=== PATIENT | male | born 1990 | race Caucasian/White ===

== ENCOUNTER 2017-05-24 15:20 | Inpatient (IN) | payer MEDICARE, MEDICAID ==
[~2017-05-24] VITALS: Ht 165.1 cm; Wt 66.7 kg
[~2017-05-24 15:20] MED LIST: FLUO-191 PO; QUET200T PO
[2017-05-24 17:39] VITALS: BP 115/71
[2017-05-24] MEDS ORDERED: HALOPERIDOL 5 MG TABLET PO PRN (17:45)
[2017-05-24 18:50] VITALS: BP 120/74
[2017-05-24] MEDS: LORazepam 2 MG TABLET PO PRN (19:29)
[2017-05-24] MEDS ORDERED: BENZ1TAB10 PO (20:03)
[2017-05-24] MEDS ORDERED: TRAZ-144 PO (20:03)
[2017-05-24] MEDS ORDERED: CLOT15CR5 TP (20:03)
[2017-05-24] MEDS ORDERED: DOCU250C90 PO (20:03)
[2017-05-24] MEDS ORDERED: FLUO-191 PO (20:03)
[2017-05-25] MEDS ORDERED: INFLUENZA VIRUS VACCINE QVS 2017-18 (3YR+)/PF 60 MCG/0.5 ML SYRINGE IM ONE (00:45)
[2017-05-25 06:40] VITALS: BP 106/53
[2017-05-25] MEDS ORDERED: MAG HYDROX/AL HYDROX/SIMETH ES 30 ML SUSPENSION UDCUP PO PRN (07:30)
[2017-05-25] MEDS ORDERED: CloNIDine HCL 0.1 MG TABLET PO PRN (07:30)
[2017-05-25] MEDS ORDERED: IBUPROFEN 600 MG TABLET PO PRN (07:30)
[2017-05-25] MEDS ORDERED: BACITRACIN 28.4 GM OINTMENT TP PRN (07:30)
[2017-05-25] MEDS ORDERED: BENZOCAINE/MENTHOL LOZENGE MM PRN (07:30)
[2017-05-25] MEDS ORDERED: MAGNESIUM HYDROXIDE SUSPENSION 30 ML UDCUP PO PRN (07:30)
[2017-05-25] MEDS ORDERED: PETROLATUM,WHITE 71 GM JELLY TP PRN (07:30)
[2017-05-25] MEDS ORDERED: ONDANSETRON HCL 4 MG TABLET PO PRN (07:30)
[2017-05-25] MEDS ORDERED: ACETAMINOPHEN 325 MG TABLET PO PRN (07:30)
[2017-05-25] MEDS ORDERED: ALBUTEROL SULFATE HFA 90 MCG/PUFF 8 GM INHALER IH PRN (07:30)
[2017-05-25] MEDS ORDERED: LOPERAMIDE HCL 2 MG CAPSULE PO PRN (07:30)
[2017-05-25 08:00] LABS: BASOPHILS # (AUTO) 0.02 K/uL (0.00-0.20); BASOPHILS % (AUTO) 0.2 % (0.0-2.0); EOSINOPHILS # (AUTO) 0.19 K/uL (0.00-0.70); EOSINOPHILS % (AUTO) 2.66 % (1.0-6.0); HEMATOCRIT 48.1 % (41-53); HEMOGLOBIN 15.9 g/dL (13.5-17.5); LYMPHOCYTES # (AUTO) 2.2 K/uL (1.0-4.8); LYMPHOCYTES % (AUTO) 30.6 % (22.0-44.0); MEAN CORPUSCULAR HEMOGLOBIN 29.9 pg (26.0-34.0); MEAN CORPUSCULAR HGB CONC 33.1 G/dL (31.0-37.0); MEAN CORPUSCULAR VOLUME 90 fL (80-100); MONOCYTES # (AUTO) 0.6 K/uL (0.1-1.0); MONOCYTES % (AUTO) 7.8 % (2.0-9.0); NEUTROPHILS # (AUTO) 4.2 K/uL (1.8-7.7); NEUTROPHILS % (AUTO) 58.7 % (40.0-70.0); PLATELET COUNT (AUTO) 205 K/uL (150-450); RED BLOOD CELL COUNT(AUTO) 5.34 MIL/uL (4.50-5.90); RED CELL DISTRIBUTION WIDTH 13.7 % (11.5-14.5); WHITE BLOOD COUNT (AUTO) 7.2 K/uL (4.5-11.0)
[2017-05-25 08:07] VITALS: BP 119/69
[2017-05-25 08:41] LABS: ALANINE AMINOTRANSFERASE 24 U/L (12-78); ALBUMIN 3.9 g/dL (3.4-5.0); ANION GAP 5 mmol/L (8-16); ASPARTATE AMINOTRANSFERASE 21 U/L (15-37); BILIRUBIN,TOTAL 0.4 mg/dL (0.1-1.0); CALCIUM, TOTAL 8.7 mg/dL (8.8-10.5); CARBON DIOXIDE 32 mmol/L (22-29); CHLORIDE 103 mmol/L (98-107); CREATININE 0.93 mg/dL (0.60-1.30); GLOMERULAR FILTR. RATE CALC > 60 mL/min (>60); POTASSIUM 4.2 mmol/L (3.5-5.1); SODIUM SERUM 140 mmol/L (136-145); THYROID STIMULATING HORMONE 0.64 uIU/mL (0.36-3.74); TOTAL PROTEIN, SERUM 7.3 g/dL (6.4-8.2); UREA NITROGEN, BLOOD 19 mg/dL (7-18)
[2017-05-25 16:17] VITALS: BP 124/77
[2017-05-25] MEDS: QUEtiapine FUMARATE 200 MG TABLET PO SCH (20:38)
[2017-05-26 00:06] VITALS: BP 108/65
[2017-05-26] MEDS: FLUoxetine HCL 20 MG CAPSULE PO SCH (08:22)
[2017-05-26 08:30] VITALS: BP 130/76
[2017-05-26 16:18] VITALS: BP 121/61
[2017-05-26] MEDS: QUEtiapine FUMARATE 200 MG TABLET PO SCH (20:12)
[2017-05-27 07:19] VITALS: BP 125/75
[2017-05-27] MEDS: FLUoxetine HCL 20 MG CAPSULE PO SCH (08:53)
[2017-05-27 08:57] VITALS: BP 118/63
[2017-05-27 16:04] VITALS: BP 125/67
[2017-05-27] MEDS: QUEtiapine FUMARATE 200 MG TABLET PO SCH (20:15)
[2017-05-28 00:30] VITALS: BP 101/60
[2017-05-28 08:51] VITALS: BP 119/60
[2017-05-28] MEDS: FLUoxetine HCL 20 MG CAPSULE PO SCH (09:14)
[2017-05-28 16:22] VITALS: BP 116/56
[2017-05-28] MEDS: QUEtiapine FUMARATE 200 MG TABLET PO SCH (20:22)
[2017-05-29 06:43] VITALS: BP 116/64
[2017-05-29 08:36] VITALS: BP 113/60
[2017-05-29] MEDS: FLUoxetine HCL 20 MG CAPSULE PO SCH (09:43)
[2017-05-29 16:11] VITALS: BP 125/67
[2017-05-29] MEDS: QUEtiapine FUMARATE 200 MG TABLET PO SCH (20:46)
[2017-05-30 01:46] VITALS: BP 118/68
[2017-05-30 08:07] VITALS: BP 119/65
[2017-05-30] MEDS: FLUoxetine HCL 20 MG CAPSULE PO SCH (08:41)
[2017-05-30 16:43] VITALS: BP 119/60
[2017-05-30] MEDS: QUEtiapine FUMARATE 200 MG TABLET PO SCH (20:05)
[2017-05-31 00:09] VITALS: BP 112/68
[2017-05-31] MEDS: FLUoxetine HCL 20 MG CAPSULE PO SCH (08:17)
[2017-05-31 08:35] VITALS: BP 118/67
[2017-05-31 16:26] VITALS: BP 124/63
[2017-05-31] MEDS: QUEtiapine FUMARATE 200 MG TABLET PO SCH (20:37)
[2017-05-31] MEDS: ZOLPIDEM TARTRATE 10 MG TABLET PO PRN (22:37)
[2017-06-01 01:30] VITALS: BP 118/60
[2017-06-01 08:21] VITALS: BP 133/96
[2017-06-01] MEDS: FLUoxetine HCL 20 MG CAPSULE PO SCH (08:48)
[2017-06-01 10:00] VITALS: BP 121/73
[2017-06-01 16:11] VITALS: BP 114/77
[2017-06-01] MEDS: QUEtiapine FUMARATE 200 MG TABLET PO SCH (20:39)
[2017-06-02 07:02] VITALS: BP 122/73
[2017-06-02] MEDS: FLUoxetine HCL 20 MG CAPSULE PO SCH (08:39)
[2017-06-02 08:47] VITALS: BP 118/78
[2017-06-02 16:15] VITALS: BP 116/65
[2017-06-02] MEDS: QUEtiapine FUMARATE 200 MG TABLET PO SCH (20:42)
[2017-06-03 01:36] VITALS: BP 109/60
[2017-06-03 08:27] VITALS: BP 119/63
[2017-06-03] MEDS: FLUoxetine HCL 20 MG CAPSULE PO SCH (08:44)
[2017-06-03 16:10] VITALS: BP 127/68
[2017-06-03] MEDS: QUEtiapine FUMARATE 200 MG TABLET PO SCH (20:05)
[2017-06-04 06:31] VITALS: BP 106/63
[2017-06-04 08:05] VITALS: BP 116/62
[2017-06-04] MEDS: FLUoxetine HCL 20 MG CAPSULE PO SCH (08:47)
[2017-06-04 16:10] VITALS: BP 111/71
[2017-06-04] MEDS: QUEtiapine FUMARATE 200 MG TABLET PO SCH (20:18)
[2017-06-05 06:11] VITALS: BP 102/62
[2017-06-05 08:26] VITALS: BP 108/72
[2017-06-05] MEDS: FLUoxetine HCL 20 MG CAPSULE PO SCH (08:53)
[2017-06-05 16:05] VITALS: BP 121/60
[2017-06-05] MEDS: QUEtiapine FUMARATE 200 MG TABLET PO SCH (21:04)
[2017-06-06 06:39] VITALS: BP 106/65
[2017-06-06 08:12] VITALS: BP 126/77
[2017-06-06] MEDS: FLUoxetine HCL 20 MG CAPSULE PO SCH (08:41)
[2017-06-06 16:08] VITALS: BP 131/63
[2017-06-06] MEDS: QUEtiapine FUMARATE 200 MG TABLET PO SCH (20:18)
[2017-06-07 05:57] VITALS: BP 113/60
[2017-06-07 08:06] VITALS: BP 116/60
[2017-06-07] MEDS: FLUoxetine HCL 20 MG CAPSULE PO SCH (08:47)
[2017-06-07 17:08] VITALS: BP 124/69
[2017-06-07] MEDS: QUEtiapine FUMARATE 200 MG TABLET PO SCH (20:38)
[2017-06-08 03:16] VITALS: BP 112/61
[2017-06-08 08:10] VITALS: BP 108/64
[2017-06-08] MEDS: FLUoxetine HCL 20 MG CAPSULE PO SCH (08:49)
[2017-06-08 16:14] VITALS: BP 109/71
[2017-06-08] MEDS: QUEtiapine FUMARATE 200 MG TABLET PO SCH (20:36)
[2017-06-09 03:42] VITALS: BP 108/62
[2017-06-09 08:39] VITALS: BP 105/61
[2017-06-09] MEDS: FLUoxetine HCL 20 MG CAPSULE PO SCH (08:55)
[2017-06-09 16:20] VITALS: BP 132/84
[2017-06-09] MEDS: QUEtiapine FUMARATE 200 MG TABLET PO SCH (20:10)
[2017-06-10 00:09] VITALS: BP 106/64
[2017-06-10] MEDS: FLUoxetine HCL 20 MG CAPSULE PO SCH (08:34)
[2017-06-10 09:17] VITALS: BP 122/65
[2017-06-10 16:19] VITALS: BP 118/71
[2017-06-10] MEDS: QUEtiapine FUMARATE 200 MG TABLET PO SCH (20:47)
[2017-06-11 06:17] VITALS: BP 103/68
[2017-06-11 08:44] VITALS: BP 114/75
[2017-06-11] MEDS: FLUoxetine HCL 20 MG CAPSULE PO SCH (08:57)
[2017-06-11 16:07] VITALS: BP 123/71
[2017-06-11] MEDS: QUEtiapine FUMARATE 200 MG TABLET PO SCH (20:19)
[2017-06-12 01:31] VITALS: BP 121/71
[2017-06-12 08:39] VITALS: BP 120/66
[2017-06-12] MEDS: FLUoxetine HCL 20 MG CAPSULE PO SCH (08:46)
[2017-06-12 16:23] VITALS: BP 121/60
[2017-06-12] MEDS: QUEtiapine FUMARATE 200 MG TABLET PO SCH (20:37)
[2017-06-13 01:17] VITALS: BP 125/61
[2017-06-13 08:40] VITALS: BP 119/64
[2017-06-13] MEDS: FLUoxetine HCL 20 MG CAPSULE PO SCH (09:06)
[2017-06-13 16:10] VITALS: BP 116/68
[2017-06-13] MEDS: QUEtiapine FUMARATE 200 MG TABLET PO SCH (20:38)
[2017-06-14 06:28] VITALS: BP 112/65
[2017-06-14 08:24] VITALS: BP 119/62
[2017-06-14] MEDS: FLUoxetine HCL 20 MG CAPSULE PO SCH (08:35)
[2017-06-14 16:13] VITALS: BP 119/73
[2017-06-14] MEDS: QUEtiapine FUMARATE 200 MG TABLET PO SCH (20:36)
[2017-06-15 01:00] VITALS: BP 113/79
[2017-06-15 08:25] LABS: HEMATOCRIT 48.1 % (41-53); HEMOGLOBIN 15.2 g/dL (13.5-17.5); MEAN CORPUSCULAR HEMOGLOBIN 28.5 pg (26.0-34.0); MEAN CORPUSCULAR HGB CONC 31.7 G/dL (31.0-37.0); MEAN CORPUSCULAR VOLUME 90 fL (80-100); PLATELET COUNT (AUTO) 235 K/uL (150-450); RED BLOOD CELL COUNT(AUTO) 5.35 MIL/uL (4.50-5.90); WHITE BLOOD COUNT (AUTO) 7.3 K/uL (4.5-11.0)
[2017-06-15 08:42] LABS: ANION GAP 9 mmol/L (8-16); CALCIUM, TOTAL 8.9 mg/dL (8.8-10.5); CARBON DIOXIDE 32 mmol/L (22-29); CHLORIDE 103 mmol/L (98-107); CREATININE 0.92 mg/dL (0.60-1.30); GLOMERULAR FILTR. RATE CALC > 60 mL/min (>60); PHOSPHORUS 4.2 mg/dL (2.5-4.9); POTASSIUM 4.3 mmol/L (3.5-5.1); SODIUM SERUM 144 mmol/L (136-145); UREA NITROGEN, BLOOD 13 mg/dL (7-18)
[2017-06-15] MEDS: FLUoxetine HCL 20 MG CAPSULE PO SCH (08:49)
[2017-06-15 09:46] VITALS: BP 105/65
[2017-06-15 09:58] LABS: EOSINOPHILS % (MANUAL) 1 % (1-6); LYMPHOCYTES % (MANUAL) 28 % (22-44); TOTAL CELLS COUNTED 100
[2017-06-15 09:59] LABS: RBC MORPHOLOGY COMMENT NORMAL RBC MORPH
[2017-06-15 16:10] VITALS: BP 124/66
[2017-06-15] MEDS: QUEtiapine FUMARATE 200 MG TABLET PO SCH (20:42)
[2017-06-16 00:50] VITALS: BP 105/63
[2017-06-16 08:32] VITALS: BP 126/70
[2017-06-16] MEDS: FLUoxetine HCL 20 MG CAPSULE PO SCH (08:48)
[2017-06-16 16:12] VITALS: BP 139/71
[2017-06-16] MEDS: LORazepam 2 MG TABLET PO PRN (20:16)
[2017-06-16] MEDS: QUEtiapine FUMARATE 200 MG TABLET PO SCH (20:27)
[2017-06-17 00:10] VITALS: BP 111/71
[2017-06-17] MEDS: FLUoxetine HCL 20 MG CAPSULE PO SCH (08:17)
[2017-06-17 08:21] VITALS: BP 129/66
[2017-06-17 16:09] VITALS: BP 128/78
[2017-06-17] MEDS: LORazepam 2 MG TABLET PO PRN (17:06)
[2017-06-17] MEDS: QUEtiapine FUMARATE 200 MG TABLET PO SCH (20:31)
[2017-06-18 02:17] VITALS: BP 112/79
[2017-06-18] MEDS: FLUoxetine HCL 20 MG CAPSULE PO SCH (08:03)
[2017-06-18 08:28] VITALS: BP 143/65
[2017-06-18 16:15] VITALS: BP 124/74
[2017-06-18] MEDS: QUEtiapine FUMARATE 200 MG TABLET PO SCH (20:27)
[2017-06-19 02:12] VITALS: BP 111/61
[2017-06-19] MEDS: FLUoxetine HCL 20 MG CAPSULE PO SCH (08:05)
[2017-06-19 08:51] VITALS: BP 122/73
[2017-06-19] MEDS ORDERED: DiphenhydrAMINE HCL 50 MG/ML VIAL ONE (12:33)
[2017-06-19] MEDS ORDERED: LORazepam 2 MG/ML VIAL ONE (12:33)
[2017-06-19] MEDS ORDERED: HALOPERIDOL LACTATE 5 MG/ML VIAL ONE (12:34)
[2017-06-19] MEDS ORDERED: DiphenhydrAMINE HCL 50 MG/ML VIAL IM ONE (12:45)
[2017-06-19] MEDS ORDERED: HALOPERIDOL LACTATE 5 MG/ML VIAL IM ONE ×2 (12:45→13:00)
[2017-06-19] MEDS ORDERED: LORazepam 2 MG/ML VIAL IM ONE (12:45)
[2017-06-19 13:12] VITALS: BP 138/81
[2017-06-19 16:15] VITALS: BP 140/76
[2017-06-19] MEDS: QUEtiapine FUMARATE 200 MG TABLET PO SCH (20:35)
[2017-06-20 00:30] VITALS: BP 125/60
[2017-06-20] MEDS: ZOLPIDEM TARTRATE 10 MG TABLET PO PRN (00:31)
[2017-06-20 08:21] VITALS: BP 137/84
[2017-06-20] MEDS: FLUoxetine HCL 20 MG CAPSULE PO SCH (08:22)
[2017-06-20 16:10] VITALS: BP 117/63
[2017-06-20] MEDS ORDERED: BENZOCAINE 20% 11.9 GM GEL TP PRN (18:15)
[2017-06-20] MEDS: QUEtiapine FUMARATE 200 MG TABLET PO SCH (20:32)
[2017-06-21 06:17] VITALS: BP 139/76
[2017-06-21 08:16] VITALS: BP 129/78
[2017-06-21] MEDS: FLUoxetine HCL 20 MG CAPSULE PO SCH (08:25)
[2017-06-21] MEDS ORDERED: QUET400T PO (09:37)
[2017-06-21] MEDS ORDERED: ALBU4TAB4 PO (09:39)
== END 2017-06-21 13:00 | disposition home or self-care (01) | DRG 881 ==
LOC: B2X 17:51
PROVIDERS: ADMIT Psychiatry & Neurology Psychiatry; ATTEND Psychiatry & Neurology Psychiatry
DX: F32.9 Major depressive disorder, single episode, unspecified (principal); F79 Unspecified intellectual disabilities; R45.851 Suicidal ideations; F22 Delusional disorders; F25.1 Schizoaffective disorder, depressive type; F12.90 Cannabis use, unspecified, uncomplicated; R62.50 Unspecified lack of expected normal physiological development in childhood; Z72.0 Tobacco use; Z71.6 Tobacco abuse counseling; Z71.51 Drug abuse counseling and surveillance of drug abuser; Z28.21 Immunization not carried out because of patient refusal
CPT/HCPCS: 83735; 84100; 84439; 84443; 85007; 87081; J1200; J1630; J2060

== ENCOUNTER 2017-06-21 19:56 | Inpatient (IN) | payer MEDICARE, MEDICAID ==
[~2017-06-21] VITALS: Ht 165.1 cm; Wt 78.5 kg
[~2017-06-21 19:56] MED LIST changes: +ALBU4TAB4 PO; -QUET200T PO; +QUET400T PO
[2017-06-22] MEDS ORDERED: ZOLPIDEM TARTRATE 10 MG TABLET PO PRN (00:15)
[2017-06-22 00:21] VITALS: BP 136/82
[2017-06-22] MEDS ORDERED: INFLUENZA VIRUS VACCINE QVS 2017-18 (3YR+)/PF 60 MCG/0.5 ML SYRINGE IM ONE (00:45)
[2017-06-22 01:27] VITALS: BP 138/75
[2017-06-22 07:57] LABS: BASOPHILS % (AUTO) 0.2 % (0.0-2.0); EOSINOPHILS % (AUTO) 0.2 % (1.0-6.0); HEMATOCRIT 46.4 % (41-53); LYMPHOCYTES # (AUTO) 1.6 K/uL (1.0-4.8); LYMPHOCYTES % (AUTO) 15.2 % (22.0-44.0); MEAN CORPUSCULAR HEMOGLOBIN 30.4 pg (26.0-34.0); MEAN CORPUSCULAR HGB CONC 34.4 G/dL (31.0-37.0); MEAN CORPUSCULAR VOLUME 88 fL (80-100); MONOCYTES # (AUTO) 0.9 K/uL (0.1-1.0); MONOCYTES % (AUTO) 8.9 % (2.0-9.0); NEUTROPHILS % (AUTO) 75.5 % (40.0-70.0); PLATELET COUNT (AUTO) 260 K/uL (150-450); RED BLOOD CELL COUNT(AUTO) 5.26 MIL/uL (4.50-5.90); RED CELL DISTRIBUTION WIDTH 14.1 % (11.5-14.5)
[2017-06-22] MEDS ORDERED: PETROLATUM,WHITE 71 GM JELLY TP PRN (08:15)
[2017-06-22] MEDS ORDERED: CloNIDine HCL 0.1 MG TABLET PO PRN (08:15)
[2017-06-22] MEDS ORDERED: MAG HYDROX/AL HYDROX/SIMETH ES 30 ML SUSPENSION UDCUP PO PRN (08:15)
[2017-06-22] MEDS ORDERED: BENZOCAINE/MENTHOL LOZENGE MM PRN (08:15)
[2017-06-22] MEDS ORDERED: ACETAMINOPHEN 325 MG TABLET PO PRN (08:15)
[2017-06-22] MEDS ORDERED: MAGNESIUM HYDROXIDE SUSPENSION 30 ML UDCUP PO PRN (08:15)
[2017-06-22] MEDS ORDERED: LOPERAMIDE HCL 2 MG CAPSULE PO PRN (08:15)
[2017-06-22] MEDS ORDERED: IBUPROFEN 600 MG TABLET PO PRN (08:15)
[2017-06-22] MEDS ORDERED: BACITRACIN 28.4 GM OINTMENT TP PRN (08:15)
[2017-06-22] MEDS ORDERED: ONDANSETRON HCL 4 MG TABLET PO PRN (08:15)
[2017-06-22] MEDS ORDERED: ALBUTEROL SULFATE HFA 90 MCG/PUFF 8 GM INHALER IH PRN (08:15)
[2017-06-22 08:23] LABS: ALANINE AMINOTRANSFERASE 37 U/L (12-78); ALBUMIN 4.6 g/dL (3.4-5.0); ALKALINE PHOSPHATASE 95 U/L (46-116); ANION GAP 10 mmol/L (8-16); ASPARTATE AMINOTRANSFERASE 27 U/L (15-37); BILIRUBIN,TOTAL 0.4 mg/dL (0.1-1.0); CALCIUM, TOTAL 9.3 mg/dL (8.8-10.5); CARBON DIOXIDE 29 mmol/L (22-29); CHLORIDE 103 mmol/L (98-107); CHOLESTEROL 154 mg/dL (131-200); CREATININE 0.94 mg/dL (0.60-1.30); FREE T4 (FREE THYROXINE) 0.88 ng/dL (0.76-1.46); GLOMERULAR FILTR. RATE CALC > 60 mL/min (>60); GLUCOSE,RANDOM 125 mg/dL (70-110); POTASSIUM 3.4 mmol/L (3.5-5.1); SODIUM SERUM 142 mmol/L (136-145); TOTAL PROTEIN, SERUM 8.3 g/dL (6.4-8.2); TRIGLYCERIDES 35 mg/dL (15-150); UREA NITROGEN, BLOOD 16 mg/dL (7-18)
[2017-06-22 08:35] LABS: CHOL/HDL RATIO 3.1 (4.2-7.3); HDL CHOLESTEROL 49 mg/dL (40-60); LDL CHOL (CALC.) 98 mg/dL (0-130)
[2017-06-22 08:40] VITALS: BP 148/77
[2017-06-22] MEDS: FLUoxetine HCL 20 MG CAPSULE PO SCH (09:32)
[2017-06-22] MEDS: LORazepam 2 MG TABLET PO PRN (14:15)
[2017-06-22] MEDS ORDERED: BENZOCAINE 20% 11.9 GM GEL TP PRN (16:00)
[2017-06-22] MEDS ORDERED: BENZOCAINE 10% 7 GM GEL TP PRN (16:30)
[2017-06-22 16:31] VITALS: BP 116/71
[2017-06-22] MEDS: QUEtiapine FUMARATE 200 MG TABLET PO SCH (20:44)
[2017-06-23 06:36] VITALS: BP 120/65
[2017-06-23 08:00] VITALS: BP 131/68
[2017-06-23 08:26] LABS: POTASSIUM 4.3 mmol/L (3.5-5.1)
[2017-06-23] MEDS: FLUoxetine HCL 20 MG CAPSULE PO SCH (08:35)
[2017-06-23] MEDS: NYSTATIN 15 GM POWDER BOTTLE TP SCH ×2 (08:36→16:43)
[2017-06-23 16:06] VITALS: BP 113/63
[2017-06-23] MEDS: QUEtiapine FUMARATE 200 MG TABLET PO SCH (20:46)
[2017-06-24 05:15] VITALS: BP 120/84
[2017-06-24] MEDS: LORazepam 2 MG TABLET PO PRN (05:16)
[2017-06-24 08:39] VITALS: BP 143/78
[2017-06-24] MEDS: NYSTATIN 15 GM POWDER BOTTLE TP SCH ×2 (09:04→17:06)
[2017-06-24] MEDS: FLUoxetine HCL 20 MG CAPSULE PO SCH (09:04)
[2017-06-24 16:40] VITALS: BP 125/90
[2017-06-24] MEDS: QUEtiapine FUMARATE 200 MG TABLET PO SCH (20:22)
[2017-06-25 01:31] VITALS: BP 127/70
[2017-06-25] MEDS: NYSTATIN 15 GM POWDER BOTTLE TP SCH ×2 (08:31→17:07)
[2017-06-25] MEDS: FLUoxetine HCL 20 MG CAPSULE PO SCH (08:31)
[2017-06-25 08:33] VITALS: BP 131/69
[2017-06-25 16:08] VITALS: BP 127/75
[2017-06-25] MEDS: QUEtiapine FUMARATE 200 MG TABLET PO SCH (20:28)
[2017-06-26 03:57] VITALS: BP 125/70
[2017-06-26] MEDS: FLUoxetine HCL 20 MG CAPSULE PO SCH (08:10)
[2017-06-26] MEDS: NYSTATIN 15 GM POWDER BOTTLE TP SCH ×2 (08:10→17:03)
[2017-06-26 08:25] VITALS: BP 127/80
[2017-06-26 16:07] VITALS: BP 120/77
[2017-06-26] MEDS: QUEtiapine FUMARATE 200 MG TABLET PO SCH (20:29)
[2017-06-27 06:02] VITALS: BP 110/60
[2017-06-27 08:27] VITALS: BP 130/63
[2017-06-27] MEDS: FLUoxetine HCL 20 MG CAPSULE PO SCH (08:28)
[2017-06-27] MEDS: NYSTATIN 15 GM POWDER BOTTLE TP SCH ×2 (08:29→16:50)
[2017-06-27 16:08] VITALS: BP 125/70
[2017-06-27] MEDS: QUEtiapine FUMARATE 200 MG TABLET PO SCH (20:47)
[2017-06-28 05:37] VITALS: BP 118/69
[2017-06-28 08:36] VITALS: BP 132/63
[2017-06-28] MEDS: FLUoxetine HCL 20 MG CAPSULE PO SCH (08:47)
[2017-06-28 16:05] VITALS: BP 121/73
[2017-06-28] MEDS: QUEtiapine FUMARATE 300 MG TABLET PO SCH (20:17)
[2017-06-29 06:46] VITALS: BP 117/62
[2017-06-29 08:35] VITALS: BP 120/61
[2017-06-29] MEDS: FLUoxetine HCL 20 MG CAPSULE PO SCH (08:48)
[2017-06-29 16:04] VITALS: BP 108/64
[2017-06-29] MEDS: QUEtiapine FUMARATE 300 MG TABLET PO SCH (20:37)
[2017-06-30 07:09] VITALS: BP 107/61
[2017-06-30 08:28] VITALS: BP 116/60
[2017-06-30] MEDS: FLUoxetine HCL 20 MG CAPSULE PO SCH (08:36)
[2017-06-30 16:18] VITALS: BP 129/75
[2017-06-30] MEDS: QUEtiapine FUMARATE 300 MG TABLET PO SCH (20:33)
[2017-07-01 06:30] VITALS: BP 113/65
[2017-07-01] MEDS: FLUoxetine HCL 20 MG CAPSULE PO SCH (08:05)
[2017-07-01 08:24] VITALS: BP 132/61
[2017-07-01 16:08] VITALS: BP 126/69
[2017-07-01] MEDS: QUEtiapine FUMARATE 300 MG TABLET PO SCH (20:31)
[2017-07-02 00:51] VITALS: BP 127/60
[2017-07-02 08:36] VITALS: BP 126/63
[2017-07-02] MEDS: FLUoxetine HCL 20 MG CAPSULE PO SCH (09:14)
[2017-07-02 16:15] VITALS: BP 139/71
[2017-07-02] MEDS: QUEtiapine FUMARATE 300 MG TABLET PO SCH (20:17)
[2017-07-03 02:16] VITALS: BP 128/73
[2017-07-03 08:41] VITALS: BP 134/77
[2017-07-03] MEDS: FLUoxetine HCL 20 MG CAPSULE PO SCH (09:04)
[2017-07-03 16:13] VITALS: BP 139/75
[2017-07-03] MEDS: QUEtiapine FUMARATE 300 MG TABLET PO SCH (20:42)
[2017-07-04 00:25] VITALS: BP 114/68
[2017-07-04 08:00] VITALS: BP 122/67
[2017-07-04] MEDS: FLUoxetine HCL 20 MG CAPSULE PO SCH (08:54)
[2017-07-04] MEDS ORDERED: TUBERCULIN, PURIFIED PROTEIN DERIVATIVE 5 TU/0.1 ML SYG ID ONE (15:30)
[2017-07-04 17:57] VITALS: BP 133/67
[2017-07-04] MEDS: QUEtiapine FUMARATE 300 MG TABLET PO SCH (20:33)
[2017-07-05 07:11] VITALS: BP 135/66
[2017-07-05 08:13] VITALS: BP 121/80
[2017-07-05] MEDS: FLUoxetine HCL 20 MG CAPSULE PO SCH (09:26)
[2017-07-05 16:08] VITALS: BP 131/64
[2017-07-05] MEDS: QUEtiapine FUMARATE 300 MG TABLET PO SCH (20:34)
[2017-07-06 01:37] VITALS: BP 135/71
[2017-07-06 08:45] VITALS: BP 127/66
[2017-07-06] MEDS: FLUoxetine HCL 20 MG CAPSULE PO SCH (09:01)
[2017-07-06 16:05] VITALS: BP 126/80
[2017-07-06] MEDS: QUEtiapine FUMARATE 300 MG TABLET PO SCH (20:39)
[2017-07-07 06:30] VITALS: BP 113/66
[2017-07-07] MEDS: FLUoxetine HCL 20 MG CAPSULE PO SCH (08:27)
[2017-07-07 08:51] VITALS: BP 130/61
[2017-07-07 16:06] VITALS: BP 131/70
[2017-07-07] MEDS: QUEtiapine FUMARATE 300 MG TABLET PO SCH (20:28)
[2017-07-08 06:31] VITALS: BP 123/61
[2017-07-08 08:37] VITALS: BP 118/73
[2017-07-08] MEDS: FLUoxetine HCL 20 MG CAPSULE PO SCH (09:02)
[2017-07-08 16:04] VITALS: BP 123/66
[2017-07-08] MEDS: QUEtiapine FUMARATE 300 MG TABLET PO SCH (20:35)
[2017-07-09 04:46] VITALS: BP 130/64
[2017-07-09] MEDS: FLUoxetine HCL 20 MG CAPSULE PO SCH (08:49)
[2017-07-09 09:01] VITALS: BP 119/88
[2017-07-09 16:12] VITALS: BP 118/77
[2017-07-09] MEDS: QUEtiapine FUMARATE 300 MG TABLET PO SCH (20:34)
[2017-07-10 02:17] VITALS: BP 110/64
[2017-07-10 08:27] VITALS: BP 132/71
[2017-07-10] MEDS: FLUoxetine HCL 20 MG CAPSULE PO SCH (08:46)
[2017-07-10 16:07] VITALS: BP 126/72
[2017-07-10] MEDS: QUEtiapine FUMARATE 300 MG TABLET PO SCH (20:30)
[2017-07-11 00:30] VITALS: BP 115/71
[2017-07-11 08:21] VITALS: BP 137/69
[2017-07-11] MEDS: FLUoxetine HCL 20 MG CAPSULE PO SCH (10:33)
[2017-07-11 16:06] VITALS: BP 126/75
[2017-07-11] MEDS: QUEtiapine FUMARATE 300 MG TABLET PO SCH (20:44)
[2017-07-12 05:00] VITALS: BP 115/60
[2017-07-12 08:30] VITALS: BP 119/60
[2017-07-12] MEDS: FLUoxetine HCL 20 MG CAPSULE PO SCH (08:53)
[2017-07-12 16:06] VITALS: BP 125/66
[2017-07-12] MEDS: QUEtiapine FUMARATE 300 MG TABLET PO SCH (20:47)
[2017-07-13 00:30] VITALS: BP 118/73
[2017-07-13 08:07] VITALS: BP 122/77
[2017-07-13] MEDS: FLUoxetine HCL 20 MG CAPSULE PO SCH (08:35)
[2017-07-13 16:38] VITALS: BP 118/69
[2017-07-13] MEDS: QUEtiapine FUMARATE 300 MG TABLET PO SCH (20:36)
[2017-07-14 06:30] VITALS: BP 133/81
[2017-07-14 08:07] VITALS: BP 112/69
[2017-07-14] MEDS: FLUoxetine HCL 20 MG CAPSULE PO SCH (08:24)
[2017-07-14 16:07] VITALS: BP 124/64
[2017-07-14] MEDS: QUEtiapine FUMARATE 300 MG TABLET PO SCH (20:38)
[2017-07-15 06:42] VITALS: BP 132/60
[2017-07-15 08:34] VITALS: BP 124/76
[2017-07-15] MEDS: FLUoxetine HCL 20 MG CAPSULE PO SCH (09:14)
[2017-07-15 16:18] VITALS: BP 135/61
[2017-07-15] MEDS: QUEtiapine FUMARATE 300 MG TABLET PO SCH (20:23)
[2017-07-16 02:26] VITALS: BP 120/60
[2017-07-16 08:42] VITALS: BP 127/64
[2017-07-16] MEDS: FLUoxetine HCL 20 MG CAPSULE PO SCH (09:00)
[2017-07-16 16:10] VITALS: BP 136/79
[2017-07-16] MEDS: QUEtiapine FUMARATE 300 MG TABLET PO SCH (20:07)
[2017-07-17 06:40] VITALS: BP 125/69
[2017-07-17] MEDS: FLUoxetine HCL 20 MG CAPSULE PO SCH (08:43)
[2017-07-17 08:47] VITALS: BP 129/72
[2017-07-17 16:19] VITALS: BP 130/71
[2017-07-17] MEDS: LORazepam 2 MG TABLET PO PRN (18:53)
[2017-07-17] MEDS: QUEtiapine FUMARATE 300 MG TABLET PO SCH (20:35)
[2017-07-18 01:18] VITALS: BP 116/63
[2017-07-18 08:00] VITALS: BP 135/67
[2017-07-18] MEDS: FLUoxetine HCL 20 MG CAPSULE PO SCH (08:51)
[2017-07-18 16:07] VITALS: BP_SYST 102; BP_SYST 117; BP_DIAS 60; BP_DIAS 77
[2017-07-18] MEDS: QUEtiapine FUMARATE 300 MG TABLET PO SCH (20:32)
[2017-07-19 04:34] VITALS: BP 121/68
[2017-07-19] MEDS: FLUoxetine HCL 20 MG CAPSULE PO SCH (08:13)
[2017-07-19 08:26] VITALS: BP 133/61
[2017-07-19 16:08] VITALS: BP 130/76
[2017-07-19] MEDS: LORazepam 2 MG TABLET PO PRN (17:43)
[2017-07-19] MEDS: QUEtiapine FUMARATE 300 MG TABLET PO SCH (20:35)
[2017-07-20 00:30] VITALS: BP 111/77
[2017-07-20 08:13] VITALS: BP 126/64
[2017-07-20] MEDS: FLUoxetine HCL 20 MG CAPSULE PO SCH (08:51)
[2017-07-20] MEDS: LORazepam 2 MG TABLET PO PRN (16:02)
[2017-07-20 16:07] VITALS: BP 134/84
[2017-07-20] MEDS: HALOPERIDOL 5 MG TABLET PO PRN (18:35)
[2017-07-20] MEDS: QUEtiapine FUMARATE 300 MG TABLET PO SCH (20:31)
[2017-07-21 01:01] VITALS: BP 129/80
[2017-07-21] MEDS: FLUoxetine HCL 20 MG CAPSULE PO SCH (08:38)
[2017-07-21 08:46] VITALS: BP 124/77
[2017-07-21 16:02] VITALS: BP 117/72
[2017-07-21] MEDS: QUEtiapine FUMARATE 300 MG TABLET PO SCH (20:18)
[2017-07-22 07:13] VITALS: BP 138/73
[2017-07-22 08:14] VITALS: BP 122/68
[2017-07-22] MEDS: FLUoxetine HCL 20 MG CAPSULE PO SCH (08:26)
[2017-07-22 09:07] LABS: HEMATOCRIT 48.2 % (41-53); HEMOGLOBIN 16.8 g/dL (13.5-17.5); MEAN CORPUSCULAR HEMOGLOBIN 30.7 pg (26.0-34.0); MEAN CORPUSCULAR HGB CONC 34.9 G/dL (31.0-37.0); MEAN CORPUSCULAR VOLUME 88 fL (80-100); PLATELET COUNT (AUTO) 245 K/uL (150-450); RED BLOOD CELL COUNT(AUTO) 5.47 MIL/uL (4.50-5.90); RED CELL DISTRIBUTION WIDTH 14.7 % (11.5-14.5)
[2017-07-22 09:59] LABS: EOSINOPHILS % (MANUAL) 1 % (1-6); LYMPHOCYTES % (MANUAL) 35 % (22-44); MONOCYTES % (MANUAL) 2 % (2-9); SEGMENTED NEUTROPHILS % 62 % (40-70)
[2017-07-22 10:06] LABS: ANION GAP 6 mmol/L (8-16); CARBON DIOXIDE 31 mmol/L (22-29); CHLORIDE 103 mmol/L (98-107); CHOL/HDL RATIO 3.7 (4.2-7.3); CHOLESTEROL 155 mg/dL (131-200); CREATININE 1.17 mg/dL (0.60-1.30); GLOMERULAR FILTR. RATE CALC > 60 mL/min (>60); GLUCOSE,RANDOM 105 mg/dL (70-110); HDL CHOLESTEROL 42 mg/dL (40-60); LDL CHOL (CALC.) 89 mg/dL (0-130); PHOSPHORUS 3.6 mg/dL (2.5-4.9); POTASSIUM 3.6 mmol/L (3.5-5.1); SODIUM SERUM 140 mmol/L (136-145); THYROID STIMULATING HORMONE 1.21 uIU/mL (0.36-3.74); TRIGLYCERIDES 119 mg/dL (15-150); UREA NITROGEN, BLOOD 16 mg/dL (7-18)
[2017-07-22 16:05] VITALS: BP 131/83
[2017-07-22] MEDS: QUEtiapine FUMARATE 300 MG TABLET PO SCH (20:08)
[2017-07-23 05:54] VITALS: BP 117/60
[2017-07-23 08:22] VITALS: BP 129/71
[2017-07-23] MEDS: FLUoxetine HCL 20 MG CAPSULE PO SCH (08:58)
[2017-07-23] MEDS: CHOLECALCIFEROL (VIT D3) 1,000 UNITS TABLET PO SCH (08:58)
[2017-07-23 16:14] VITALS: BP 137/75
[2017-07-23] MEDS: QUEtiapine FUMARATE 300 MG TABLET PO SCH (20:19)
[2017-07-24 00:45] VITALS: BP 110/68
[2017-07-24] MEDS: FLUoxetine HCL 20 MG CAPSULE PO SCH (08:16)
[2017-07-24] MEDS: CHOLECALCIFEROL (VIT D3) 1,000 UNITS TABLET PO SCH (08:16)
[2017-07-24 08:35] VITALS: BP 114/63
[2017-07-24 16:21] VITALS: BP 136/63
[2017-07-24] MEDS: QUEtiapine FUMARATE 300 MG TABLET PO SCH (20:32)
[2017-07-25 01:31] VITALS: BP 127/68
[2017-07-25 08:31] VITALS: BP 118/73
[2017-07-25] MEDS: CHOLECALCIFEROL (VIT D3) 1,000 UNITS TABLET PO SCH (08:41)
[2017-07-25] MEDS: FLUoxetine HCL 20 MG CAPSULE PO SCH (08:41)
[2017-07-25 16:24] VITALS: BP 122/66
[2017-07-25] MEDS: QUEtiapine FUMARATE 300 MG TABLET PO SCH (20:43)
[2017-07-26 04:44] VITALS: BP 115/68
[2017-07-26] MEDS: FLUoxetine HCL 20 MG CAPSULE PO SCH (08:07)
[2017-07-26] MEDS: CHOLECALCIFEROL (VIT D3) 1,000 UNITS TABLET PO SCH (08:07)
[2017-07-26 08:38] VITALS: BP 127/77
[2017-07-26 16:53] VITALS: BP 140/58
[2017-07-26] MEDS: QUEtiapine FUMARATE 300 MG TABLET PO SCH (20:08)
[2017-07-27 06:09] VITALS: BP 120/67
[2017-07-27] MEDS: FLUoxetine HCL 20 MG CAPSULE PO SCH (08:12)
[2017-07-27] MEDS: CHOLECALCIFEROL (VIT D3) 1,000 UNITS TABLET PO SCH (08:12)
[2017-07-27 08:38] VITALS: BP 133/61
[2017-07-27 16:12] VITALS: BP 129/60
[2017-07-27] MEDS: QUEtiapine FUMARATE 300 MG TABLET PO SCH (20:29)
[2017-07-28 08:10] VITALS: BP 124/60
[2017-07-28] MEDS: CHOLECALCIFEROL (VIT D3) 1,000 UNITS TABLET PO SCH (08:37)
[2017-07-28] MEDS: FLUoxetine HCL 20 MG CAPSULE PO SCH (08:37)
[2017-07-28 09:33] VITALS: BP 124/60
[2017-07-28 16:11] VITALS: BP 120/71
[2017-07-28] MEDS: QUEtiapine FUMARATE 300 MG TABLET PO SCH (20:15)
[2017-07-29 01:08] VITALS: BP 107/76
[2017-07-29 08:17] VITALS: BP 127/81
[2017-07-29] MEDS: FLUoxetine HCL 20 MG CAPSULE PO SCH (08:27)
[2017-07-29] MEDS: CHOLECALCIFEROL (VIT D3) 1,000 UNITS TABLET PO SCH (08:27)
[2017-07-29 16:39] VITALS: BP 127/67
[2017-07-29] MEDS: QUEtiapine FUMARATE 300 MG TABLET PO SCH (20:12)
[2017-07-30 06:20] VITALS: BP 126/76
[2017-07-30] MEDS: CHOLECALCIFEROL (VIT D3) 1,000 UNITS TABLET PO SCH (08:37)
[2017-07-30] MEDS: FLUoxetine HCL 20 MG CAPSULE PO SCH (08:38)
[2017-07-30 08:40] VITALS: BP 115/69
[2017-07-30 16:22] VITALS: BP 137/69
[2017-07-30] MEDS: QUEtiapine FUMARATE 300 MG TABLET PO SCH (20:23)
[2017-07-31 05:00] VITALS: BP 122/63
[2017-07-31 08:39] VITALS: BP 127/68
[2017-07-31] MEDS: FLUoxetine HCL 20 MG CAPSULE PO SCH (08:53)
[2017-07-31] MEDS: CHOLECALCIFEROL (VIT D3) 1,000 UNITS TABLET PO SCH (08:53)
[2017-07-31 16:18] VITALS: BP 134/78
[2017-07-31] MEDS: QUEtiapine FUMARATE 300 MG TABLET PO SCH (20:42)
[2017-08-01 01:19] VITALS: BP 118/66
[2017-08-01 08:23] VITALS: BP 109/62
[2017-08-01] MEDS: FLUoxetine HCL 20 MG CAPSULE PO SCH (08:31)
[2017-08-01] MEDS: CHOLECALCIFEROL (VIT D3) 1,000 UNITS TABLET PO SCH (08:31)
[2017-08-01 16:32] VITALS: BP 130/54
[2017-08-01] MEDS: QUEtiapine FUMARATE 300 MG TABLET PO SCH (20:09)
[2017-08-02 02:08] VITALS: BP 119/71
[2017-08-02 08:50] VITALS: BP 122/55
[2017-08-02] MEDS: FLUoxetine HCL 20 MG CAPSULE PO SCH (08:53)
[2017-08-02] MEDS: CHOLECALCIFEROL (VIT D3) 1,000 UNITS TABLET PO SCH (08:53)
[2017-08-02 16:23] VITALS: BP 136/80
[2017-08-02] MEDS: QUEtiapine FUMARATE 300 MG TABLET PO SCH (20:00)
[2017-08-02] MEDS: LORazepam 2 MG TABLET PO PRN (21:19)
[2017-08-03 06:44] VITALS: BP 127/62
[2017-08-03 08:33] VITALS: BP 114/63
[2017-08-03] MEDS: CHOLECALCIFEROL (VIT D3) 1,000 UNITS TABLET PO SCH (08:46)
[2017-08-03] MEDS: FLUoxetine HCL 20 MG CAPSULE PO SCH (08:46)
[2017-08-03 17:56] VITALS: BP 137/82
[2017-08-03] MEDS: QUEtiapine FUMARATE 300 MG TABLET PO SCH (20:42)
[2017-08-04 01:48] VITALS: BP 110/78
[2017-08-04] MEDS: CHOLECALCIFEROL (VIT D3) 1,000 UNITS TABLET PO SCH (08:53)
[2017-08-04] MEDS: FLUoxetine HCL 20 MG CAPSULE PO SCH (08:54)
[2017-08-04 09:05] VITALS: BP 121/64
[2017-08-04 16:41] VITALS: BP 121/60
[2017-08-04] MEDS: QUEtiapine FUMARATE 300 MG TABLET PO SCH (20:26)
[2017-08-05 04:23] VITALS: BP 122/68
[2017-08-05 08:44] VITALS: BP 124/76
[2017-08-05] MEDS: CHOLECALCIFEROL (VIT D3) 1,000 UNITS TABLET PO SCH (08:48)
[2017-08-05] MEDS: FLUoxetine HCL 20 MG CAPSULE PO SCH (08:49)
[2017-08-05 16:47] VITALS: BP 134/74
[2017-08-05] MEDS: QUEtiapine FUMARATE 300 MG TABLET PO SCH (20:07)
[2017-08-06 06:11] VITALS: BP 113/76
[2017-08-06 08:25] VITALS: BP 112/60
[2017-08-06] MEDS: CHOLECALCIFEROL (VIT D3) 1,000 UNITS TABLET PO SCH (08:59)
[2017-08-06] MEDS: FLUoxetine HCL 20 MG CAPSULE PO SCH (08:59)
[2017-08-06] MEDS: LORazepam 2 MG TABLET PO PRN (14:06)
[2017-08-06 16:40] VITALS: BP 118/81
[2017-08-06] MEDS: QUEtiapine FUMARATE 300 MG TABLET PO SCH (20:20)
[2017-08-07 03:24] VITALS: BP 127/67
[2017-08-07 08:33] VITALS: BP 124/66
[2017-08-07] MEDS: FLUoxetine HCL 20 MG CAPSULE PO SCH (08:53)
[2017-08-07] MEDS: CHOLECALCIFEROL (VIT D3) 1,000 UNITS TABLET PO SCH (08:53)
[2017-08-07 16:16] VITALS: BP 127/66
[2017-08-07] MEDS: QUEtiapine FUMARATE 300 MG TABLET PO SCH (20:25)
[2017-08-07] MEDS: LORazepam 2 MG TABLET PO PRN (20:33)
[2017-08-08 02:53] VITALS: BP 120/60
[2017-08-08 08:27] VITALS: BP 123/68
[2017-08-08] MEDS: FLUoxetine HCL 20 MG CAPSULE PO SCH (09:41)
[2017-08-08] MEDS: CHOLECALCIFEROL (VIT D3) 1,000 UNITS TABLET PO SCH (09:42)
[2017-08-08 16:20] VITALS: BP 133/78
[2017-08-08] MEDS: QUEtiapine FUMARATE 300 MG TABLET PO SCH (20:41)
[2017-08-09 02:08] VITALS: BP 122/74
[2017-08-09] MEDS: FLUoxetine HCL 20 MG CAPSULE PO SCH (08:41)
[2017-08-09] MEDS: CHOLECALCIFEROL (VIT D3) 1,000 UNITS TABLET PO SCH (08:41)
[2017-08-09 09:09] VITALS: BP 121/65
[2017-08-09 16:29] VITALS: BP 138/82
[2017-08-09] MEDS: QUEtiapine FUMARATE 300 MG TABLET PO SCH (20:37)
[2017-08-10 00:36] VITALS: BP 122/78
[2017-08-10 08:00] VITALS: BP 131/66
[2017-08-10] MEDS: FLUoxetine HCL 20 MG CAPSULE PO SCH (08:33)
[2017-08-10] MEDS: CHOLECALCIFEROL (VIT D3) 1,000 UNITS TABLET PO SCH (08:33)
[2017-08-10 16:26] VITALS: BP 121/74
[2017-08-10] MEDS: QUEtiapine FUMARATE 300 MG TABLET PO SCH (20:32)
[2017-08-11 02:59] VITALS: BP 111/71
[2017-08-11] MEDS: CHOLECALCIFEROL (VIT D3) 1,000 UNITS TABLET PO SCH (08:44)
[2017-08-11] MEDS: FLUoxetine HCL 20 MG CAPSULE PO SCH (08:44)
[2017-08-11 08:49] VITALS: BP 118/63
[2017-08-11 16:13] VITALS: BP 122/81
[2017-08-11] MEDS: QUEtiapine FUMARATE 300 MG TABLET PO SCH (20:40)
[2017-08-12 06:15] VITALS: BP 123/77
[2017-08-12 08:02] VITALS: BP 122/72
[2017-08-12 08:29] VITALS: BP 122/72
[2017-08-12] MEDS: CHOLECALCIFEROL (VIT D3) 1,000 UNITS TABLET PO SCH (08:31)
[2017-08-12] MEDS: FLUoxetine HCL 20 MG CAPSULE PO SCH (08:31)
[2017-08-12 16:00] VITALS: BP 135/79
[2017-08-12] MEDS: QUEtiapine FUMARATE 300 MG TABLET PO SCH (20:06)
[2017-08-13 01:55] VITALS: BP 119/67
[2017-08-13] MEDS: CHOLECALCIFEROL (VIT D3) 1,000 UNITS TABLET PO SCH (08:27)
[2017-08-13] MEDS: FLUoxetine HCL 20 MG CAPSULE PO SCH (08:28)
[2017-08-13 08:40] VITALS: BP 99/61
[2017-08-13 16:23] VITALS: BP 136/78
[2017-08-13] MEDS: QUEtiapine FUMARATE 300 MG TABLET PO SCH (20:17)
[2017-08-14 01:01] VITALS: BP 133/68
[2017-08-14] MEDS: CHOLECALCIFEROL (VIT D3) 1,000 UNITS TABLET PO SCH (08:02)
[2017-08-14] MEDS: FLUoxetine HCL 20 MG CAPSULE PO SCH (08:03)
[2017-08-14 08:45] VITALS: BP 122/71
[2017-08-14 16:34] VITALS: BP 115/63
[2017-08-14] MEDS: QUEtiapine FUMARATE 300 MG TABLET PO SCH (20:43)
[2017-08-15 01:14] VITALS: BP 119/71
[2017-08-15 07:58] LABS: HEMATOCRIT 45.4 % (41-53); HEMOGLOBIN 15.2 g/dL (13.5-17.5); MEAN CORPUSCULAR HEMOGLOBIN 30.2 pg (26.0-34.0); MEAN CORPUSCULAR HGB CONC 33.5 G/dL (31.0-37.0); MEAN CORPUSCULAR VOLUME 90 fL (80-100); PLATELET COUNT (AUTO) 222 K/uL (150-450); RED BLOOD CELL COUNT(AUTO) 5.03 MIL/uL (4.50-5.90); RED CELL DISTRIBUTION WIDTH 14.5 % (11.5-14.5)
[2017-08-15] MEDS: CHOLECALCIFEROL (VIT D3) 1,000 UNITS TABLET PO SCH (08:08)
[2017-08-15] MEDS: FLUoxetine HCL 20 MG CAPSULE PO SCH (08:08)
[2017-08-15 08:33] LABS: ANION GAP 7 mmol/L (8-16); CALCIUM, TOTAL 8.7 mg/dL (8.8-10.5); CARBON DIOXIDE 29 mmol/L (22-29); CHLORIDE 100 mmol/L (98-107); CHOLESTEROL 144 mg/dL (131-200); CREATININE 1.07 mg/dL (0.60-1.30); GLOMERULAR FILTR. RATE CALC > 60 mL/min (>60); GLUCOSE,RANDOM 85 mg/dL (70-110); HDL CHOLESTEROL 36 mg/dL (40-60); LDL CHOL (CALC.) 61 mg/dL (0-130); PHOSPHORUS 4.4 mg/dL (2.5-4.9); POTASSIUM 3.8 mmol/L (3.5-5.1); SODIUM SERUM 136 mmol/L (136-145); THYROID STIMULATING HORMONE 1.63 uIU/mL (0.36-3.74); TRIGLYCERIDES 237 mg/dL (15-150); UREA NITROGEN, BLOOD 16 mg/dL (7-18)
[2017-08-15 08:35] VITALS: BP 113/60
[2017-08-15 12:29] LABS: EOSINOPHILS % (MANUAL) 2 % (1-6); LYMPHOCYTES % (MANUAL) 35 % (22-44); MONOCYTES % (MANUAL) 6 % (2-9); SEGMENTED NEUTROPHILS % 57 % (40-70)
[2017-08-15 16:00] VITALS: BP 121/83
[2017-08-15] MEDS: QUEtiapine FUMARATE 300 MG TABLET PO SCH (20:38)
[2017-08-16 04:19] VITALS: BP 120/80
[2017-08-16] MEDS: CHOLECALCIFEROL (VIT D3) 1,000 UNITS TABLET PO SCH (08:45)
[2017-08-16] MEDS: FLUoxetine HCL 20 MG CAPSULE PO SCH (08:45)
[2017-08-16 08:49] VITALS: BP 140/78
[2017-08-16 17:50] VITALS: BP 135/71
[2017-08-16] MEDS: QUEtiapine FUMARATE 300 MG TABLET PO SCH (20:38)
[2017-08-17 01:01] VITALS: BP 120/76
[2017-08-17] MEDS: CHOLECALCIFEROL (VIT D3) 1,000 UNITS TABLET PO SCH (08:08)
[2017-08-17] MEDS: FLUoxetine HCL 20 MG CAPSULE PO SCH (08:09)
[2017-08-17] MEDS: OMEGA-3/DHA/EPA/FISH OIL 1,000 MG CAPSULE PO SCH (08:09)
[2017-08-17 08:12] VITALS: BP 125/60
[2017-08-17 16:31] VITALS: BP 135/66
[2017-08-17] MEDS: QUEtiapine FUMARATE 300 MG TABLET PO SCH (20:33)
[2017-08-18 01:31] VITALS: BP 125/68
[2017-08-18] MEDS: FLUoxetine HCL 20 MG CAPSULE PO SCH (08:26)
[2017-08-18] MEDS: OMEGA-3/DHA/EPA/FISH OIL 1,000 MG CAPSULE PO SCH (08:26)
[2017-08-18] MEDS: CHOLECALCIFEROL (VIT D3) 1,000 UNITS TABLET PO SCH (08:26)
[2017-08-18 08:34] VITALS: BP 112/61
[2017-08-18 16:27] VITALS: BP 118/69
[2017-08-18] MEDS: QUEtiapine FUMARATE 300 MG TABLET PO SCH (20:16)
[2017-08-19 00:27] VITALS: BP 127/67
[2017-08-19] MEDS: OMEGA-3/DHA/EPA/FISH OIL 1,000 MG CAPSULE PO SCH (08:26)
[2017-08-19] MEDS: FLUoxetine HCL 20 MG CAPSULE PO SCH (08:26)
[2017-08-19] MEDS: CHOLECALCIFEROL (VIT D3) 1,000 UNITS TABLET PO SCH (08:26)
[2017-08-19 08:27] VITALS: BP 133/79
[2017-08-19 16:00] VITALS: BP 121/75
[2017-08-19] MEDS: QUEtiapine FUMARATE 300 MG TABLET PO SCH (20:35)
[2017-08-20 00:10] VITALS: BP 120/62
[2017-08-20 08:07] VITALS: BP 121/75
[2017-08-20] MEDS: FLUoxetine HCL 20 MG CAPSULE PO SCH (08:26)
[2017-08-20] MEDS: OMEGA-3/DHA/EPA/FISH OIL 1,000 MG CAPSULE PO SCH (08:26)
[2017-08-20] MEDS: CHOLECALCIFEROL (VIT D3) 1,000 UNITS TABLET PO SCH (08:26)
[2017-08-20 16:05] VITALS: BP 120/66
[2017-08-20] MEDS: QUEtiapine FUMARATE 300 MG TABLET PO SCH (20:31)
[2017-08-21 02:28] VITALS: BP 127/79
[2017-08-21] MEDS: CHOLECALCIFEROL (VIT D3) 1,000 UNITS TABLET PO SCH (08:24)
[2017-08-21] MEDS: FLUoxetine HCL 20 MG CAPSULE PO SCH (08:24)
[2017-08-21] MEDS: OMEGA-3/DHA/EPA/FISH OIL 1,000 MG CAPSULE PO SCH (08:24)
[2017-08-21 09:28] VITALS: BP 139/65
[2017-08-21 16:16] VITALS: BP 133/72
[2017-08-21] MEDS: QUEtiapine FUMARATE 300 MG TABLET PO SCH (20:41)
[2017-08-22 01:27] VITALS: BP 126/60
[2017-08-22 08:52] VITALS: BP 121/61
[2017-08-22] MEDS: OMEGA-3/DHA/EPA/FISH OIL 1,000 MG CAPSULE PO SCH (08:52)
[2017-08-22] MEDS: FLUoxetine HCL 20 MG CAPSULE PO SCH (08:52)
[2017-08-22] MEDS: CHOLECALCIFEROL (VIT D3) 1,000 UNITS TABLET PO SCH (08:52)
[2017-08-22 16:13] VITALS: BP 138/75
[2017-08-22] MEDS: QUEtiapine FUMARATE 300 MG TABLET PO SCH (20:29)
[2017-08-23 01:20] VITALS: BP 122/92
[2017-08-23 08:36] VITALS: BP 116/65
[2017-08-23] MEDS: CHOLECALCIFEROL (VIT D3) 1,000 UNITS TABLET PO SCH (08:59)
[2017-08-23] MEDS: FLUoxetine HCL 20 MG CAPSULE PO SCH (09:00)
[2017-08-23] MEDS: OMEGA-3/DHA/EPA/FISH OIL 1,000 MG CAPSULE PO SCH (09:00)
[2017-08-23 16:08] VITALS: BP 127/67
[2017-08-23] MEDS: QUEtiapine FUMARATE 300 MG TABLET PO SCH (20:34)
[2017-08-24 00:10] VITALS: BP 120/71
[2017-08-24] MEDS: LORazepam 2 MG TABLET PO PRN (00:18)
[2017-08-24] MEDS: CHOLECALCIFEROL (VIT D3) 1,000 UNITS TABLET PO SCH (08:14)
[2017-08-24] MEDS: FLUoxetine HCL 20 MG CAPSULE PO SCH (08:14)
[2017-08-24] MEDS: OMEGA-3/DHA/EPA/FISH OIL 1,000 MG CAPSULE PO SCH (08:14)
[2017-08-24 08:41] VITALS: BP 118/63
[2017-08-24 16:31] VITALS: BP 121/72
[2017-08-24] MEDS: QUEtiapine FUMARATE 300 MG TABLET PO SCH (20:39)
[2017-08-25 01:04] VITALS: BP 110/61
[2017-08-25] MEDS: OMEGA-3/DHA/EPA/FISH OIL 1,000 MG CAPSULE PO SCH (08:06)
[2017-08-25] MEDS: CHOLECALCIFEROL (VIT D3) 1,000 UNITS TABLET PO SCH (08:06)
[2017-08-25] MEDS: FLUoxetine HCL 20 MG CAPSULE PO SCH (08:06)
[2017-08-25 08:51] VITALS: BP 124/70
[2017-08-25 16:00] VITALS: BP 118/90
[2017-08-25] MEDS: QUEtiapine FUMARATE 300 MG TABLET PO SCH (20:38)
[2017-08-26 02:22] VITALS: BP 123/75
[2017-08-26] MEDS: CHOLECALCIFEROL (VIT D3) 1,000 UNITS TABLET PO SCH (08:14)
[2017-08-26] MEDS: OMEGA-3/DHA/EPA/FISH OIL 1,000 MG CAPSULE PO SCH (08:14)
[2017-08-26] MEDS: FLUoxetine HCL 20 MG CAPSULE PO SCH (08:14)
[2017-08-26 09:01] VITALS: BP 115/66
[2017-08-26 16:09] VITALS: BP 125/69
[2017-08-26] MEDS: QUEtiapine FUMARATE 300 MG TABLET PO SCH (20:25)
[2017-08-27 00:15] VITALS: BP 110/62
[2017-08-27 08:27] VITALS: BP 116/62
[2017-08-27] MEDS: OMEGA-3/DHA/EPA/FISH OIL 1,000 MG CAPSULE PO SCH (08:32)
[2017-08-27] MEDS: CHOLECALCIFEROL (VIT D3) 1,000 UNITS TABLET PO SCH (08:32)
[2017-08-27] MEDS: FLUoxetine HCL 20 MG CAPSULE PO SCH (08:32)
[2017-08-27 16:13] VITALS: BP 123/64
[2017-08-27] MEDS: QUEtiapine FUMARATE 300 MG TABLET PO SCH (21:49)
[2017-08-28 01:14] VITALS: BP 123/65
[2017-08-28 08:00] VITALS: BP 112/62
[2017-08-28] MEDS: FLUoxetine HCL 20 MG CAPSULE PO SCH (08:10)
[2017-08-28] MEDS: OMEGA-3/DHA/EPA/FISH OIL 1,000 MG CAPSULE PO SCH (08:10)
[2017-08-28] MEDS: CHOLECALCIFEROL (VIT D3) 1,000 UNITS TABLET PO SCH (08:12)
[2017-08-28 16:11] VITALS: BP 124/72
[2017-08-28] MEDS: QUEtiapine FUMARATE 300 MG TABLET PO SCH (20:33)
[2017-08-29 00:57] VITALS: BP 114/58
[2017-08-29 08:46] VITALS: BP 112/66
[2017-08-29] MEDS: OMEGA-3/DHA/EPA/FISH OIL 1,000 MG CAPSULE PO SCH (08:49)
[2017-08-29] MEDS: FLUoxetine HCL 20 MG CAPSULE PO SCH (08:49)
[2017-08-29] MEDS: CHOLECALCIFEROL (VIT D3) 1,000 UNITS TABLET PO SCH (08:49)
[2017-08-29 16:12] VITALS: BP 132/69
[2017-08-29] MEDS: QUEtiapine FUMARATE 300 MG TABLET PO SCH (20:37)
[2017-08-30 00:36] VITALS: BP 134/77
[2017-08-30 08:12] VITALS: BP 125/71
[2017-08-30] MEDS: FLUoxetine HCL 20 MG CAPSULE PO SCH (08:30)
[2017-08-30] MEDS: CHOLECALCIFEROL (VIT D3) 1,000 UNITS TABLET PO SCH (08:30)
[2017-08-30] MEDS: OMEGA-3/DHA/EPA/FISH OIL 1,000 MG CAPSULE PO SCH (08:30)
[2017-08-30 16:31] VITALS: BP 138/73
[2017-08-30] MEDS: QUEtiapine FUMARATE 300 MG TABLET PO SCH (20:35)
[2017-08-31 06:03] VITALS: BP 136/76
[2017-08-31 08:14] VITALS: BP 120/64
[2017-08-31] MEDS: CHOLECALCIFEROL (VIT D3) 1,000 UNITS TABLET PO SCH (08:42)
[2017-08-31] MEDS: OMEGA-3/DHA/EPA/FISH OIL 1,000 MG CAPSULE PO SCH (08:42)
[2017-08-31] MEDS: FLUoxetine HCL 20 MG CAPSULE PO SCH (08:42)
[2017-08-31 17:43] VITALS: BP 132/78
[2017-08-31] MEDS: QUEtiapine FUMARATE 300 MG TABLET PO SCH (20:35)
[2017-09-01 00:35] VITALS: BP_SYST 114; BP_SYST 58; BP_DIAS 58; BP_DIAS 80
[2017-09-01 08:27] VITALS: BP 129/72
[2017-09-01] MEDS: OMEGA-3/DHA/EPA/FISH OIL 1,000 MG CAPSULE PO SCH (08:35)
[2017-09-01] MEDS: FLUoxetine HCL 20 MG CAPSULE PO SCH (08:35)
[2017-09-01] MEDS: CHOLECALCIFEROL (VIT D3) 1,000 UNITS TABLET PO SCH (08:35)
[2017-09-01 16:13] VITALS: BP 134/64
[2017-09-01] MEDS: QUEtiapine FUMARATE 300 MG TABLET PO SCH (20:32)
[2017-09-02 01:04] VITALS: BP 128/60
[2017-09-02 08:25] VITALS: BP 127/77
[2017-09-02] MEDS: FLUoxetine HCL 20 MG CAPSULE PO SCH (08:44)
[2017-09-02] MEDS: OMEGA-3/DHA/EPA/FISH OIL 1,000 MG CAPSULE PO SCH (08:44)
[2017-09-02] MEDS: CHOLECALCIFEROL (VIT D3) 1,000 UNITS TABLET PO SCH (08:44)
[2017-09-02 17:03] VITALS: BP 138/78
[2017-09-02] MEDS: QUEtiapine FUMARATE 300 MG TABLET PO SCH (20:39)
[2017-09-03 01:06] VITALS: BP 126/74
[2017-09-03 08:03] VITALS: BP 119/62
[2017-09-03] MEDS: FLUoxetine HCL 20 MG CAPSULE PO SCH (08:37)
[2017-09-03] MEDS: OMEGA-3/DHA/EPA/FISH OIL 1,000 MG CAPSULE PO SCH (08:37)
[2017-09-03] MEDS: CHOLECALCIFEROL (VIT D3) 1,000 UNITS TABLET PO SCH (08:37)
[2017-09-03 16:05] VITALS: BP 135/77
[2017-09-03] MEDS: QUEtiapine FUMARATE 300 MG TABLET PO SCH (20:35)
[2017-09-04 01:17] VITALS: BP 121/80
[2017-09-04 08:33] VITALS: BP 125/60
[2017-09-04] MEDS: FLUoxetine HCL 20 MG CAPSULE PO SCH (08:42)
[2017-09-04] MEDS: CHOLECALCIFEROL (VIT D3) 1,000 UNITS TABLET PO SCH (08:42)
[2017-09-04] MEDS: OMEGA-3/DHA/EPA/FISH OIL 1,000 MG CAPSULE PO SCH (08:42)
[2017-09-04] MEDS: AMOXICILLIN TRIHYDRATE 500 MG CAPSULE PO SCH (16:14)
[2017-09-04 16:15] VITALS: BP 134/74
[2017-09-04] MEDS: QUEtiapine FUMARATE 300 MG TABLET PO SCH (20:08)
[2017-09-05 00:34] VITALS: BP 125/68
[2017-09-05 08:16] VITALS: BP 113/62
[2017-09-05] MEDS: FLUoxetine HCL 20 MG CAPSULE PO SCH (08:33)
[2017-09-05] MEDS: AMOXICILLIN TRIHYDRATE 500 MG CAPSULE PO SCH ×3 (08:33→16:33)
[2017-09-05] MEDS: CHOLECALCIFEROL (VIT D3) 1,000 UNITS TABLET PO SCH (08:33)
[2017-09-05] MEDS: OMEGA-3/DHA/EPA/FISH OIL 1,000 MG CAPSULE PO SCH (08:33)
[2017-09-05 16:04] VITALS: BP 127/65
[2017-09-05] MEDS: QUEtiapine FUMARATE 300 MG TABLET PO SCH (20:39)
[2017-09-06 02:31] VITALS: BP 127/71
[2017-09-06 08:09] VITALS: BP 133/68
[2017-09-06] MEDS: AMOXICILLIN TRIHYDRATE 500 MG CAPSULE PO SCH ×3 (08:33→16:43)
[2017-09-06] MEDS: CHOLECALCIFEROL (VIT D3) 1,000 UNITS TABLET PO SCH (08:33)
[2017-09-06] MEDS: OMEGA-3/DHA/EPA/FISH OIL 1,000 MG CAPSULE PO SCH (08:33)
[2017-09-06] MEDS: FLUoxetine HCL 20 MG CAPSULE PO SCH (08:34)
[2017-09-06 16:10] VITALS: BP 139/83
[2017-09-06] MEDS: QUEtiapine FUMARATE 300 MG TABLET PO SCH (20:38)
[2017-09-07 04:13] VITALS: BP 124/62
[2017-09-07 08:15] LABS: HEMATOCRIT 46.8 % (41-53); HEMOGLOBIN 16.1 g/dL (13.5-17.5); MEAN CORPUSCULAR HEMOGLOBIN 30.4 pg (26.0-34.0); MEAN CORPUSCULAR HGB CONC 34.3 G/dL (31.0-37.0); MEAN CORPUSCULAR VOLUME 89 fL (80-100); PLATELET COUNT (AUTO) 237 K/uL (150-450); RED BLOOD CELL COUNT(AUTO) 5.28 MIL/uL (4.50-5.90); RED CELL DISTRIBUTION WIDTH 14.4 % (11.5-14.5)
[2017-09-07] MEDS: AMOXICILLIN TRIHYDRATE 500 MG CAPSULE PO SCH ×3 (08:53→16:37)
[2017-09-07] MEDS: CHOLECALCIFEROL (VIT D3) 1,000 UNITS TABLET PO SCH (08:53)
[2017-09-07] MEDS: OMEGA-3/DHA/EPA/FISH OIL 1,000 MG CAPSULE PO SCH (08:53)
[2017-09-07] MEDS: FLUoxetine HCL 20 MG CAPSULE PO SCH (08:53)
[2017-09-07 08:57] VITALS: BP 115/63
[2017-09-07 09:10] LABS: EOSINOPHILS % (MANUAL) 3 % (1-6); LYMPHOCYTES % (MANUAL) 39 % (22-44); MONOCYTES % (MANUAL) 13 % (2-9); SEGMENTED NEUTROPHILS % 45 % (40-70)
[2017-09-07 09:26] LABS: ANION GAP 5 mmol/L (8-16); CALCIUM, TOTAL 8.9 mg/dL (8.8-10.5); CARBON DIOXIDE 33 mmol/L (22-29); CHLORIDE 103 mmol/L (98-107); CHOL/HDL RATIO 4.1 (4.2-7.3); CHOLESTEROL 153 mg/dL (131-200); CREATININE 1.01 mg/dL (0.60-1.30); GLOMERULAR FILTR. RATE CALC > 60 mL/min (>60); GLUCOSE,RANDOM 69 mg/dL (70-110); HDL CHOLESTEROL 37 mg/dL (40-60); LDL CHOL (CALC.) 88 mg/dL (0-130); PHOSPHORUS 4.5 mg/dL (2.5-4.9); POTASSIUM 4.3 mmol/L (3.5-5.1); SODIUM SERUM 141 mmol/L (136-145); THYROID STIMULATING HORMONE 2.05 uIU/mL (0.36-3.74); TRIGLYCERIDES 139 mg/dL (15-150); UREA NITROGEN, BLOOD 17 mg/dL (7-18)
[2017-09-07 16:24] VITALS: BP 135/71
[2017-09-07] MEDS: QUEtiapine FUMARATE 300 MG TABLET PO SCH (20:36)
[2017-09-08] VITALS: BP 135/71
[2017-09-08 08:18] VITALS: BP 123/60
[2017-09-08] MEDS: AMOXICILLIN TRIHYDRATE 500 MG CAPSULE PO SCH ×3 (08:35→16:42)
[2017-09-08] MEDS: FLUoxetine HCL 20 MG CAPSULE PO SCH (08:35)
[2017-09-08] MEDS: CHOLECALCIFEROL (VIT D3) 1,000 UNITS TABLET PO SCH (08:35)
[2017-09-08] MEDS: OMEGA-3/DHA/EPA/FISH OIL 1,000 MG CAPSULE PO SCH (08:36)
[2017-09-08 16:33] VITALS: BP 134/72
[2017-09-08] MEDS: QUEtiapine FUMARATE 300 MG TABLET PO SCH (20:42)
[2017-09-09 06:10] VITALS: BP 109/69
[2017-09-09] MEDS: CHOLECALCIFEROL (VIT D3) 1,000 UNITS TABLET PO SCH (08:29)
[2017-09-09] MEDS: AMOXICILLIN TRIHYDRATE 500 MG CAPSULE PO SCH ×3 (08:30→17:10)
[2017-09-09] MEDS: OMEGA-3/DHA/EPA/FISH OIL 1,000 MG CAPSULE PO SCH (08:30)
[2017-09-09] MEDS: FLUoxetine HCL 20 MG CAPSULE PO SCH (08:30)
[2017-09-09 08:37] VITALS: BP 130/69
[2017-09-09 16:07] VITALS: BP 135/71
[2017-09-09] MEDS: QUEtiapine FUMARATE 300 MG TABLET PO SCH (20:36)
[2017-09-10 01:00] VITALS: BP 137/60
[2017-09-10 08:40] VITALS: BP 125/71
[2017-09-10] MEDS: OMEGA-3/DHA/EPA/FISH OIL 1,000 MG CAPSULE PO SCH (09:02)
[2017-09-10] MEDS: AMOXICILLIN TRIHYDRATE 500 MG CAPSULE PO SCH ×3 (09:02→16:18)
[2017-09-10] MEDS: CHOLECALCIFEROL (VIT D3) 1,000 UNITS TABLET PO SCH (09:02)
[2017-09-10] MEDS: FLUoxetine HCL 20 MG CAPSULE PO SCH (09:02)
[2017-09-10 16:21] VITALS: BP 134/72
[2017-09-10] MEDS: QUEtiapine FUMARATE 300 MG TABLET PO SCH (20:14)
[2017-09-11 00:28] VITALS: BP 124/75
[2017-09-11 08:08] VITALS: BP 128/71
[2017-09-11] MEDS: AMOXICILLIN TRIHYDRATE 500 MG CAPSULE PO SCH ×2 (09:22→13:46)
[2017-09-11] MEDS: FLUoxetine HCL 20 MG CAPSULE PO SCH (09:22)
[2017-09-11] MEDS: CHOLECALCIFEROL (VIT D3) 1,000 UNITS TABLET PO SCH (09:22)
[2017-09-11] MEDS: OMEGA-3/DHA/EPA/FISH OIL 1,000 MG CAPSULE PO SCH (09:22)
[2017-09-11 16:09] VITALS: BP 146/77
[2017-09-11] MEDS: QUEtiapine FUMARATE 300 MG TABLET PO SCH (20:35)
[2017-09-12 02:00] VITALS: BP 129/60
[2017-09-12 08:24] VITALS: BP 126/60
[2017-09-12] MEDS: CHOLECALCIFEROL (VIT D3) 1,000 UNITS TABLET PO SCH (09:12)
[2017-09-12] MEDS: FLUoxetine HCL 20 MG CAPSULE PO SCH (09:12)
[2017-09-12] MEDS: OMEGA-3/DHA/EPA/FISH OIL 1,000 MG CAPSULE PO SCH (09:13)
[2017-09-12 16:10] VITALS: BP 113/76
[2017-09-12] MEDS: QUEtiapine FUMARATE 300 MG TABLET PO SCH (20:41)
[2017-09-13 06:32] VITALS: BP 126/84
[2017-09-13] MEDS: CHOLECALCIFEROL (VIT D3) 1,000 UNITS TABLET PO SCH (09:10)
[2017-09-13] MEDS: OMEGA-3/DHA/EPA/FISH OIL 1,000 MG CAPSULE PO SCH (09:10)
[2017-09-13] MEDS: FLUoxetine HCL 20 MG CAPSULE PO SCH (09:10)
[2017-09-13 13:52] VITALS: BP 102/60
[2017-09-13 16:15] VITALS: BP 121/78
[2017-09-13] MEDS: QUEtiapine FUMARATE 300 MG TABLET PO SCH (20:55)
[2017-09-14 01:33] VITALS: BP 112/79
[2017-09-14 08:22] VITALS: BP 133/71
[2017-09-14] MEDS: CHOLECALCIFEROL (VIT D3) 1,000 UNITS TABLET PO SCH (09:00)
[2017-09-14] MEDS: OMEGA-3/DHA/EPA/FISH OIL 1,000 MG CAPSULE PO SCH (09:00)
[2017-09-14] MEDS: FLUoxetine HCL 20 MG CAPSULE PO SCH (09:00)
[2017-09-14 16:11] VITALS: BP 132/78
[2017-09-14] MEDS: QUEtiapine FUMARATE 300 MG TABLET PO SCH (20:32)
[2017-09-15 06:47] VITALS: BP 118/70
[2017-09-15] MEDS: FLUoxetine HCL 20 MG CAPSULE PO SCH (08:29)
[2017-09-15] MEDS: CHOLECALCIFEROL (VIT D3) 1,000 UNITS TABLET PO SCH (08:29)
[2017-09-15] MEDS: OMEGA-3/DHA/EPA/FISH OIL 1,000 MG CAPSULE PO SCH (08:29)
[2017-09-15 08:33] VITALS: BP 132/70
[2017-09-15] MEDS: LORazepam 2 MG TABLET PO PRN (12:58)
[2017-09-15] MEDS: HALOPERIDOL 5 MG TABLET PO PRN (12:58)
[2017-09-15 16:18] VITALS: BP 133/81
[2017-09-15] MEDS: QUEtiapine FUMARATE 300 MG TABLET PO SCH (20:44)
[2017-09-16 06:39] VITALS: BP 134/73
[2017-09-16 08:30] VITALS: BP 134/71
[2017-09-16] MEDS: CHOLECALCIFEROL (VIT D3) 1,000 UNITS TABLET PO SCH (08:36)
[2017-09-16] MEDS: FLUoxetine HCL 20 MG CAPSULE PO SCH (08:36)
[2017-09-16] MEDS: OMEGA-3/DHA/EPA/FISH OIL 1,000 MG CAPSULE PO SCH (08:36)
[2017-09-16 16:17] VITALS: BP 135/72
[2017-09-16] MEDS: QUEtiapine FUMARATE 300 MG TABLET PO SCH (20:36)
[2017-09-17 00:25] VITALS: BP 111/66
[2017-09-17 08:26] VITALS: BP 124/83
[2017-09-17] MEDS: OMEGA-3/DHA/EPA/FISH OIL 1,000 MG CAPSULE PO SCH (08:34)
[2017-09-17] MEDS: FLUoxetine HCL 20 MG CAPSULE PO SCH (08:34)
[2017-09-17] MEDS: CHOLECALCIFEROL (VIT D3) 1,000 UNITS TABLET PO SCH (08:34)
[2017-09-17 16:14] VITALS: BP 129/68
[2017-09-17] MEDS: QUEtiapine FUMARATE 300 MG TABLET PO SCH (20:22)
[2017-09-18 01:12] VITALS: BP 111/60
[2017-09-18 08:41] VITALS: BP 117/68
[2017-09-18] MEDS: OMEGA-3/DHA/EPA/FISH OIL 1,000 MG CAPSULE PO SCH (08:50)
[2017-09-18] MEDS: FLUoxetine HCL 20 MG CAPSULE PO SCH (08:50)
[2017-09-18] MEDS: CHOLECALCIFEROL (VIT D3) 1,000 UNITS TABLET PO SCH (08:50)
[2017-09-18 16:09] VITALS: BP 127/76
[2017-09-18] MEDS: QUEtiapine FUMARATE 300 MG TABLET PO SCH (20:42)
[2017-09-19] VITALS: BP 127/66
[2017-09-19 08:25] VITALS: BP 108/62
[2017-09-19] MEDS: FLUoxetine HCL 20 MG CAPSULE PO SCH (08:32)
[2017-09-19] MEDS: OMEGA-3/DHA/EPA/FISH OIL 1,000 MG CAPSULE PO SCH (08:32)
[2017-09-19] MEDS: CHOLECALCIFEROL (VIT D3) 1,000 UNITS TABLET PO SCH (08:32)
[2017-09-19 16:14] VITALS: BP 136/70
[2017-09-19] MEDS: HALOPERIDOL 5 MG TABLET PO PRN (16:41)
[2017-09-19] MEDS: LORazepam 2 MG TABLET PO PRN (16:41)
[2017-09-19] MEDS: QUEtiapine FUMARATE 300 MG TABLET PO SCH (20:33)
[2017-09-20] MEDS: OMEGA-3/DHA/EPA/FISH OIL 1,000 MG CAPSULE PO SCH (08:28)
[2017-09-20] MEDS: CHOLECALCIFEROL (VIT D3) 1,000 UNITS TABLET PO SCH (08:28)
[2017-09-20] MEDS: FLUoxetine HCL 20 MG CAPSULE PO SCH (08:28)
[2017-09-20 09:15] VITALS: BP 117/60
[2017-09-20 16:16] VITALS: BP 135/84
[2017-09-20] MEDS: QUEtiapine FUMARATE 300 MG TABLET PO SCH (20:19)
[2017-09-21 06:23] VITALS: BP 118/80
[2017-09-21 08:31] VITALS: BP 138/89
[2017-09-21] MEDS: CHOLECALCIFEROL (VIT D3) 1,000 UNITS TABLET PO SCH (08:32)
[2017-09-21] MEDS: FLUoxetine HCL 20 MG CAPSULE PO SCH (08:32)
[2017-09-21] MEDS: OMEGA-3/DHA/EPA/FISH OIL 1,000 MG CAPSULE PO SCH (08:32)
[2017-09-21 16:11] VITALS: BP 139/60
[2017-09-21] MEDS: QUEtiapine FUMARATE 300 MG TABLET PO SCH (20:39)
[2017-09-22 06:22] VITALS: BP 100/63
[2017-09-22 08:34] VITALS: BP 129/73
[2017-09-22] MEDS: CHOLECALCIFEROL (VIT D3) 1,000 UNITS TABLET PO SCH (08:43)
[2017-09-22] MEDS: OMEGA-3/DHA/EPA/FISH OIL 1,000 MG CAPSULE PO SCH (08:44)
[2017-09-22] MEDS: FLUoxetine HCL 20 MG CAPSULE PO SCH (08:44)
[2017-09-22 17:30] VITALS: BP 132/80
[2017-09-22] MEDS: QUEtiapine FUMARATE 300 MG TABLET PO SCH (20:06)
[2017-09-23 01:50] VITALS: BP 133/76
[2017-09-23] MEDS: CHOLECALCIFEROL (VIT D3) 1,000 UNITS TABLET PO SCH (08:16)
[2017-09-23 08:17] VITALS: BP 136/80
[2017-09-23] MEDS: OMEGA-3/DHA/EPA/FISH OIL 1,000 MG CAPSULE PO SCH (08:17)
[2017-09-23] MEDS: FLUoxetine HCL 20 MG CAPSULE PO SCH (08:17)
[2017-09-23 16:19] VITALS: BP 138/66
[2017-09-23] MEDS: QUEtiapine FUMARATE 300 MG TABLET PO SCH (20:15)
[2017-09-24 06:42] VITALS: BP 106/66
[2017-09-24] MEDS: CHOLECALCIFEROL (VIT D3) 1,000 UNITS TABLET PO SCH (08:04)
[2017-09-24] MEDS: OMEGA-3/DHA/EPA/FISH OIL 1,000 MG CAPSULE PO SCH (08:04)
[2017-09-24] MEDS: FLUoxetine HCL 20 MG CAPSULE PO SCH (08:04)
[2017-09-24 08:15] VITALS: BP 126/83
[2017-09-24] MEDS: LORazepam 2 MG TABLET PO PRN ×2 (14:18→21:10)
[2017-09-24 16:20] VITALS: BP 135/83
[2017-09-24] MEDS: QUEtiapine FUMARATE 300 MG TABLET PO SCH (20:28)
[2017-09-25 01:20] VITALS: BP 119/64
[2017-09-25] MEDS: FLUoxetine HCL 20 MG CAPSULE PO SCH (08:04)
[2017-09-25] MEDS: OMEGA-3/DHA/EPA/FISH OIL 1,000 MG CAPSULE PO SCH (08:04)
[2017-09-25] MEDS: CHOLECALCIFEROL (VIT D3) 1,000 UNITS TABLET PO SCH (08:04)
[2017-09-25 08:15] VITALS: BP 132/76
[2017-09-25 16:09] VITALS: BP 139/79
[2017-09-25] MEDS: QUEtiapine FUMARATE 300 MG TABLET PO SCH (20:27)
[2017-09-26 03:19] VITALS: BP 140/72
[2017-09-26 08:07] VITALS: BP 140/78
[2017-09-26] MEDS: OMEGA-3/DHA/EPA/FISH OIL 1,000 MG CAPSULE PO SCH (08:20)
[2017-09-26] MEDS: FLUoxetine HCL 20 MG CAPSULE PO SCH (08:21)
[2017-09-26] MEDS: CHOLECALCIFEROL (VIT D3) 1,000 UNITS TABLET PO SCH (08:21)
[2017-09-26] MEDS: LORazepam 2 MG TABLET PO PRN ×2 (08:39→17:26)
[2017-09-26 16:11] VITALS: BP 108/78
[2017-09-26] MEDS: QUEtiapine FUMARATE 300 MG TABLET PO SCH (20:30)
[2017-09-27 02:03] VITALS: BP 115/62
[2017-09-27 08:12] VITALS: BP 124/69
[2017-09-27] MEDS: CHOLECALCIFEROL (VIT D3) 1,000 UNITS TABLET PO SCH (08:54)
[2017-09-27] MEDS: OMEGA-3/DHA/EPA/FISH OIL 1,000 MG CAPSULE PO SCH (08:54)
[2017-09-27] MEDS: FLUoxetine HCL 20 MG CAPSULE PO SCH (08:55)
[2017-09-27] MEDS ORDERED: HALOPERIDOL LACTATE 5 MG/ML VIAL IM ONE (13:00)
[2017-09-27] MEDS ORDERED: DiphenhydrAMINE HCL 50 MG/ML VIAL IM ONE (13:00)
[2017-09-27] MEDS ORDERED: LORazepam 2 MG/ML VIAL IM ONE (13:00)
[2017-09-27 14:38] VITALS: BP 137/72
[2017-09-27 16:19] VITALS: BP 130/60
[2017-09-27] MEDS: BACITRACIN 28.4 GM OINTMENT TP SCH (17:43)
[2017-09-27] MEDS: QUEtiapine FUMARATE 300 MG TABLET PO SCH (20:29)
[2017-09-28 00:12] VITALS: BP 125/76
[2017-09-28 08:00] VITALS: BP 103/74
[2017-09-28] MEDS: FLUoxetine HCL 20 MG CAPSULE PO SCH (08:33)
[2017-09-28] MEDS: OMEGA-3/DHA/EPA/FISH OIL 1,000 MG CAPSULE PO SCH (08:33)
[2017-09-28] MEDS: CHOLECALCIFEROL (VIT D3) 1,000 UNITS TABLET PO SCH (08:33)
[2017-09-28] MEDS: BACITRACIN 28.4 GM OINTMENT TP SCH ×2 (08:34→16:34)
[2017-09-28 16:15] VITALS: BP 133/63
[2017-09-28] MEDS: QUEtiapine FUMARATE 300 MG TABLET PO SCH (20:33)
[2017-09-29 06:15] VITALS: BP 113/63
[2017-09-29 08:18] VITALS: BP 102/72
[2017-09-29] MEDS: CHOLECALCIFEROL (VIT D3) 1,000 UNITS TABLET PO SCH (09:08)
[2017-09-29] MEDS: OMEGA-3/DHA/EPA/FISH OIL 1,000 MG CAPSULE PO SCH (09:08)
[2017-09-29] MEDS: BACITRACIN 28.4 GM OINTMENT TP SCH ×2 (09:08→16:24)
[2017-09-29] MEDS: FLUoxetine HCL 20 MG CAPSULE PO SCH (09:08)
[2017-09-29 16:01] VITALS: BP 124/68
[2017-09-29] MEDS: QUEtiapine FUMARATE 300 MG TABLET PO SCH (20:01)
[2017-09-30 01:09] VITALS: BP 114/80
[2017-09-30 08:32] VITALS: BP 123/65
[2017-09-30] MEDS: BACITRACIN 28.4 GM OINTMENT TP SCH ×2 (08:33→16:38)
[2017-09-30] MEDS: FLUoxetine HCL 20 MG CAPSULE PO SCH (08:33)
[2017-09-30] MEDS: OMEGA-3/DHA/EPA/FISH OIL 1,000 MG CAPSULE PO SCH (08:33)
[2017-09-30] MEDS: CHOLECALCIFEROL (VIT D3) 1,000 UNITS TABLET PO SCH (08:33)
[2017-09-30 16:18] VITALS: BP 133/72
[2017-09-30] MEDS: QUEtiapine FUMARATE 300 MG TABLET PO SCH (20:39)
[2017-10-01 01:14] VITALS: BP 123/64
[2017-10-01 08:34] VITALS: BP 121/67
[2017-10-01] MEDS: FLUoxetine HCL 20 MG CAPSULE PO SCH (08:35)
[2017-10-01] MEDS: OMEGA-3/DHA/EPA/FISH OIL 1,000 MG CAPSULE PO SCH (08:35)
[2017-10-01] MEDS: CHOLECALCIFEROL (VIT D3) 1,000 UNITS TABLET PO SCH (08:35)
[2017-10-01] MEDS: BACITRACIN 28.4 GM OINTMENT TP SCH ×2 (08:36→16:27)
[2017-10-01 16:00] VITALS: BP 117/63
[2017-10-01] MEDS: QUEtiapine FUMARATE 300 MG TABLET PO SCH (20:09)
[2017-10-02 00:19] VITALS: BP 116/64
[2017-10-02 08:41] VITALS: BP 124/73
[2017-10-02] MEDS: OMEGA-3/DHA/EPA/FISH OIL 1,000 MG CAPSULE PO SCH (08:47)
[2017-10-02] MEDS: CHOLECALCIFEROL (VIT D3) 1,000 UNITS TABLET PO SCH (08:47)
[2017-10-02] MEDS: FLUoxetine HCL 20 MG CAPSULE PO SCH (08:47)
[2017-10-02] MEDS: BACITRACIN 28.4 GM OINTMENT TP SCH ×2 (08:59→16:43)
[2017-10-02 16:20] VITALS: BP 135/74
[2017-10-02] MEDS: QUEtiapine FUMARATE 300 MG TABLET PO SCH (20:35)
[2017-10-03 01:40] VITALS: BP 119/68
[2017-10-03 08:33] VITALS: BP 114/65
[2017-10-03] MEDS: BACITRACIN 28.4 GM OINTMENT TP SCH ×2 (08:35→16:42)
[2017-10-03] MEDS: CHOLECALCIFEROL (VIT D3) 1,000 UNITS TABLET PO SCH (08:35)
[2017-10-03] MEDS: OMEGA-3/DHA/EPA/FISH OIL 1,000 MG CAPSULE PO SCH (08:35)
[2017-10-03] MEDS: FLUoxetine HCL 20 MG CAPSULE PO SCH (08:35)
[2017-10-03 16:09] VITALS: BP 137/76
[2017-10-03] MEDS: QUEtiapine FUMARATE 300 MG TABLET PO SCH (20:42)
[2017-10-04 01:50] VITALS: BP 127/63
[2017-10-04] MEDS: OMEGA-3/DHA/EPA/FISH OIL 1,000 MG CAPSULE PO SCH (08:54)
[2017-10-04] MEDS: FLUoxetine HCL 20 MG CAPSULE PO SCH (08:54)
[2017-10-04] MEDS: CHOLECALCIFEROL (VIT D3) 1,000 UNITS TABLET PO SCH (08:54)
[2017-10-04] MEDS: BACITRACIN 28.4 GM OINTMENT TP SCH ×2 (08:55→16:38)
[2017-10-04 09:09] VITALS: BP 114/61
[2017-10-04 16:12] VITALS: BP 121/72
[2017-10-04] MEDS: QUEtiapine FUMARATE 300 MG TABLET PO SCH (20:43)
[2017-10-05 00:34] VITALS: BP 138/75
[2017-10-05] MEDS: BACITRACIN 28.4 GM OINTMENT TP SCH ×2 (08:10→16:33)
[2017-10-05] MEDS: CHOLECALCIFEROL (VIT D3) 1,000 UNITS TABLET PO SCH (08:10)
[2017-10-05] MEDS: OMEGA-3/DHA/EPA/FISH OIL 1,000 MG CAPSULE PO SCH (08:10)
[2017-10-05] MEDS: FLUoxetine HCL 20 MG CAPSULE PO SCH (08:10)
[2017-10-05 08:20] VITALS: BP 116/71
[2017-10-05 16:14] VITALS: BP 131/65
[2017-10-05] MEDS: QUEtiapine FUMARATE 300 MG TABLET PO SCH (20:33)
[2017-10-06 01:00] VITALS: BP 137/74
[2017-10-06 08:08] VITALS: BP 129/62
[2017-10-06] MEDS: FLUoxetine HCL 20 MG CAPSULE PO SCH (08:42)
[2017-10-06] MEDS: OMEGA-3/DHA/EPA/FISH OIL 1,000 MG CAPSULE PO SCH (08:42)
[2017-10-06] MEDS: BACITRACIN 28.4 GM OINTMENT TP SCH ×2 (08:42→16:46)
[2017-10-06] MEDS: CHOLECALCIFEROL (VIT D3) 1,000 UNITS TABLET PO SCH (08:42)
[2017-10-06 16:34] VITALS: BP 120/66
[2017-10-06] MEDS: QUEtiapine FUMARATE 300 MG TABLET PO SCH (20:49)
[2017-10-07 03:00] VITALS: BP 118/72
[2017-10-07 08:00] VITALS: BP 121/62
[2017-10-07] MEDS: OMEGA-3/DHA/EPA/FISH OIL 1,000 MG CAPSULE PO SCH (08:17)
[2017-10-07] MEDS: CHOLECALCIFEROL (VIT D3) 1,000 UNITS TABLET PO SCH (08:17)
[2017-10-07] MEDS: FLUoxetine HCL 20 MG CAPSULE PO SCH (08:18)
[2017-10-07] MEDS: BACITRACIN 28.4 GM OINTMENT TP SCH (08:19)
[2017-10-07 16:40] VITALS: BP 132/82
[2017-10-07] MEDS: QUEtiapine FUMARATE 300 MG TABLET PO SCH (20:57)
[2017-10-08] VITALS: BP 107/77
[2017-10-08 08:23] VITALS: BP 124/82
[2017-10-08] MEDS: FLUoxetine HCL 20 MG CAPSULE PO SCH (08:44)
[2017-10-08] MEDS: CHOLECALCIFEROL (VIT D3) 1,000 UNITS TABLET PO SCH (08:44)
[2017-10-08] MEDS: OMEGA-3/DHA/EPA/FISH OIL 1,000 MG CAPSULE PO SCH (08:44)
[2017-10-08 16:21] VITALS: BP 128/78
[2017-10-08] MEDS: QUEtiapine FUMARATE 300 MG TABLET PO SCH (20:11)
[2017-10-09 01:20] VITALS: BP 130/70
[2017-10-09] MEDS: FLUoxetine HCL 20 MG CAPSULE PO SCH (08:11)
[2017-10-09] MEDS: CHOLECALCIFEROL (VIT D3) 1,000 UNITS TABLET PO SCH (08:11)
[2017-10-09] MEDS: OMEGA-3/DHA/EPA/FISH OIL 1,000 MG CAPSULE PO SCH (08:11)
[2017-10-09 09:17] VITALS: BP 134/79
[2017-10-09 16:11] VITALS: BP 164/74
[2017-10-09 18:11] VITALS: BP 132/82
[2017-10-09] MEDS: QUEtiapine FUMARATE 300 MG TABLET PO SCH (20:33)
[2017-10-10 00:37] VITALS: BP 114/60
[2017-10-10] MEDS ORDERED: QUET300T2 PO (08:26)
[2017-10-10] MEDS ORDERED: FLUO-191 PO (08:26)
[2017-10-10] MEDS ORDERED: VITAD1000 PO (08:29)
[2017-10-10] MEDS ORDERED: OMEG-135 PO (08:29)
[2017-10-10] MEDS: OMEGA-3/DHA/EPA/FISH OIL 1,000 MG CAPSULE PO SCH (08:40)
[2017-10-10] MEDS: CHOLECALCIFEROL (VIT D3) 1,000 UNITS TABLET PO SCH (08:41)
[2017-10-10] MEDS: FLUoxetine HCL 20 MG CAPSULE PO SCH (08:41)
[2017-10-10 08:43] VITALS: BP 122/67
== END 2017-10-10 13:33 | disposition home or self-care (01) | DRG 885 ==
LOC: B2X 06-22 00:13
PROVIDERS: ATTEND Psychiatry & Neurology Psychiatry
DX: F33.3 Major depressive disorder, recurrent, severe with psychotic symptoms (principal); E83.51 Hypocalcemia; F12.90 Cannabis use, unspecified, uncomplicated; B37.9 Candidiasis, unspecified; F17.200 Nicotine dependence, unspecified, uncomplicated; G47.00 Insomnia, unspecified; K59.00 Constipation, unspecified; R45.87 Impulsiveness; K08.89 Other specified disorders of teeth and supporting structures; H00.026 Hordeolum internum left eye, unspecified eyelid; S61.512A Laceration without foreign body of left wrist, initial encounter; X78.9XXA Intentional self-harm by unspecified sharp object, initial encounter; Z79.899 Other long term (current) drug therapy; Y93.89 Activity, other specified; Y92.89 Other specified places as the place of occurrence of the external cause; Y99.8 Other external cause status
CPT/HCPCS: 82306; 83735; 84100; 84132; 84295; 84436; 84439; 84443; 85007; 87081; J1200; J1630; J2060

== ENCOUNTER 2019-01-06 10:58 | Inpatient (IN) | payer MEDICARE, MEDICAID ==
[~2019-01-06] VITALS: Ht 167.6 cm; Wt 79.9 kg
[~2019-01-06 10:58] MED LIST changes: -ALBU4TAB4 PO; +OMEG-135 PO; +QUET300T2 PO; -QUET400T PO; +VITAD1000 PO
[2019-01-06 12:15] LABS: BASOPHILS % (AUTO) 0.2 % (0.0-2.0); EOSINOPHILS % (AUTO) 0.6 % (1.0-6.0); HEMATOCRIT 47.8 % (41-53); HEMOGLOBIN 16.2 g/dL (13.5-17.5); LYMPHOCYTES # (AUTO) 1.9 K/uL (1.0-4.8); LYMPHOCYTES % (AUTO) 24.4 % (22.0-44.0); MEAN CORPUSCULAR HEMOGLOBIN 30.1 pg (26.0-34.0); MEAN CORPUSCULAR HGB CONC 33.9 G/dL (31.0-37.0); MEAN CORPUSCULAR VOLUME 89 fL (80-100); MONOCYTES # (AUTO) 0.8 K/uL (0.1-1.0); MONOCYTES % (AUTO) 9.7 % (2.0-9.0); NEUTROPHILS # (AUTO) 5.2 K/uL (1.8-7.7); NEUTROPHILS % (AUTO) 65.1 % (40.0-70.0); PLATELET COUNT (AUTO) 283 K/uL (150-450); RED BLOOD CELL COUNT(AUTO) 5.39 MIL/uL (4.50-5.90); RED CELL DISTRIBUTION WIDTH 13.8 % (11.5-14.5)
[2019-01-06 12:21] LABS: ANION GAP 6 mmol/L (8-16); CALCIUM, TOTAL 9.3 mg/dL (8.8-10.5); CARBON DIOXIDE 29 mmol/L (22-29); CHLORIDE 104 mmol/L (98-107); CREATININE 0.93 mg/dL (0.60-1.30); GLOMERULAR FILTR. RATE CALC > 60 mL/min (>60); GLUCOSE,RANDOM 102 mg/dL (70-110); POTASSIUM 3.8 mmol/L (3.5-5.1); SODIUM SERUM 139 mmol/L (136-145); UREA NITROGEN, BLOOD 8 mg/dL (7-18)
[2019-01-06 12:27] LABS: ALANINE AMINOTRANSFERASE 28 U/L (12-78); ALBUMIN 4.1 g/dL (3.4-5.0); ALKALINE PHOSPHATASE 126 U/L (46-116); ASPARTATE AMINOTRANSFERASE 21 U/L (15-37); BILIRUBIN,TOTAL 0.4 mg/dL (0.1-1.0); TOTAL PROTEIN, SERUM 8.2 g/dL (6.4-8.2)
[2019-01-06] MEDS ORDERED: LORazepam 2 MG TABLET PO PRN (15:30)
[2019-01-06] MEDS ORDERED: QUEtiapine FUMARATE 100 MG TABLET PO PRN (15:30)
[2019-01-06] MEDS ORDERED: ZOLPIDEM TARTRATE 10 MG TABLET PO PRN (15:30)
[2019-01-07 01:32] VITALS: BP 145/90
[2019-01-07 06:37] LABS: CHOL/HDL RATIO 4.4 (4.2-7.3)
[2019-01-07 08:24] VITALS: BP 139/84
[2019-01-07 17:13] VITALS: BP 139/86
[2019-01-08 13:44] VITALS: BP 148/82
[2019-01-08 22:04] VITALS: BP 140/66
[2019-01-09 09:05] VITALS: BP 149/82
[2019-01-09] MEDS ORDERED: FLUoxetine HCL 20 MG CAPSULE PO SCH (10:15)
[2019-01-09] MEDS: FLUoxetine HCL 20 MG CAPSULE PO SCH (12:48)
[2019-01-09 16:53] VITALS: BP 115/73
[2019-01-09] MEDS ORDERED: QUEtiapine FUMARATE 300 MG TABLET PO SCH (21:00)
[2019-01-10 08:00] VITALS: BP 118/67
[2019-01-10] MEDS: FLUoxetine HCL 20 MG CAPSULE PO SCH (08:47)
== END 2019-01-10 15:20 | disposition home or self-care (01) | DRG 885 ==
LOC: EMS 10:58 → 3EX 01-07 00:02
PROVIDERS: ADMIT Psychiatry & Neurology Psychiatry; ATTEND Psychiatry & Neurology Psychiatry
DX: F20.0 Paranoid schizophrenia (principal); R45.851 Suicidal ideations; G47.00 Insomnia, unspecified; K59.00 Constipation, unspecified; F17.200 Nicotine dependence, unspecified, uncomplicated; F12.90 Cannabis use, unspecified, uncomplicated; R62.50 Unspecified lack of expected normal physiological development in childhood; S61.512A Laceration without foreign body of left wrist, initial encounter; Z71.6 Tobacco abuse counseling; Z71.51 Drug abuse counseling and surveillance of drug abuser; X83.8XXA Intentional self-harm by other specified means, initial encounter; Y93.89 Activity, other specified; Y92.89 Other specified places as the place of occurrence of the external cause; Y99.8 Other external cause status
CPT/HCPCS: G0378; G0480

== ENCOUNTER 2021-12-16 20:45 | Inpatient (IN) | payer OTHER, MEDICAID ==
[~2021-12-16] VITALS: Ht 162.6 cm; Wt 80.3 kg
[~2021-12-16 20:45] MED LIST changes: +FLUO-177 PO; -FLUO-191 PO; -OMEG-135 PO; -VITAD1000 PO
[2021-12-16 22:15] LABS: COVID AG,FIA SOURCE NASAL SWAB
[2021-12-16 22:24] LABS: AMPHET/METH SCREEN,URINE NEGATIVE (NEGATIVE); BARBITURATE SCREEN, URINE NEGATIVE (NEGATIVE); BENZODIAZEPINES SCREEN,URINE NEGATIVE (NEGATIVE); CANNABINOID SCREEN,URINE POSITIVE (NEGATIVE); COCAINE SCREEN,URINE NEGATIVE (NEGATIVE); METHADONE SCREEN, URINE NEGATIVE (NEGATIVE); OPIATE SCREEN,URINE NEGATIVE (NEGATIVE)
[2021-12-16 22:27] LABS: PHENCYCLIDINE SCREEN,URINE NEGATIVE (NEGATIVE)
[2021-12-16 22:29] LABS: BASOPHILS % (AUTO) 0.1 % (0.0-2.0); EOSINOPHILS % (AUTO) 0.9 % (1.0-6.0); HEMOGLOBIN 14.7 g/dL (13.5-17.5); LYMPHOCYTES # (AUTO) 2.4 K/uL (1.0-4.8); LYMPHOCYTES % (AUTO) 18.8 % (22.0-44.0); MEAN CORPUSCULAR HEMOGLOBIN 29.7 pg (26.0-34.0); MEAN CORPUSCULAR HGB CONC 34.1 G/dL (31.0-37.0); MEAN CORPUSCULAR VOLUME 87 fL (80-100); MONOCYTES # (AUTO) 0.9 K/uL (0.1-1.0); NEUTROPHILS # (AUTO) 9.3 K/uL (1.8-7.7); NEUTROPHILS % (AUTO) 73.2 % (40.0-70.0); PLATELET COUNT (AUTO) 263 K/uL (150-450); RED BLOOD CELL COUNT(AUTO) 4.94 MIL/uL (4.50-5.90); RED CELL DISTRIBUTION WIDTH 13.8 % (11.5-14.5)
[2021-12-16 22:38] LABS: ANION GAP 4 mmol/L (8-16); CALCIUM, TOTAL 8.8 mg/dL (8.8-10.5); CARBON DIOXIDE 29 mmol/L (22-29); CHLORIDE 105 mmol/L (98-107); CREATININE 1.05 mg/dL (0.60-1.30); GLOMERULAR FILTR. RATE CALC > 60 mL/min (>60); GLUCOSE,RANDOM 98 mg/dL (70-110); POTASSIUM 3.7 mmol/L (3.5-5.1); SODIUM SERUM 138 mmol/L (136-145); UREA NITROGEN, BLOOD 15 mg/dL (7-18)
[2021-12-16 22:44] LABS: ALANINE AMINOTRANSFERASE 27 U/L (12-78); ALBUMIN 3.8 g/dL (3.4-5.0); ALKALINE PHOSPHATASE 99 U/L (46-116); ASPARTATE AMINOTRANSFERASE 19 U/L (15-37); BILIRUBIN,TOTAL 0.2 mg/dL (0.1-1.0); TOTAL PROTEIN, SERUM 7.5 g/dL (6.4-8.2)
[2021-12-17] MEDS ORDERED: LORazepam 2 MG TABLET PO PRN
[2021-12-17] MEDS ORDERED: HALOPERIDOL 5 MG TABLET PO PRN
[2021-12-17] MEDS ORDERED: ZOLPIDEM TARTRATE 10 MG TABLET PO PRN
[2021-12-17 04:29] VITALS: BP 136/75
[2021-12-17 08:37] VITALS: BP 120/73
[2021-12-17] MEDS: DIVALPROEX SODIUM 500 MG DR TABLET PO SCH ×2 (11:43→16:19)
[2021-12-17] MEDS ORDERED: OMEPRAZOLE 20 MG CAPSULE PO PRN (12:15)
[2021-12-17] MEDS ORDERED: BENZOCAINE/MENTHOL LOZENGE PO PRN (12:15)
[2021-12-17] MEDS ORDERED: ONDANSETRON HCL 4 MG TABLET PO PRN (12:15)
[2021-12-17] MEDS ORDERED: PETROLATUM,WHITE 28 GM JELLY TP PRN (12:15)
[2021-12-17] MEDS ORDERED: DOCUSATE SODIUM 100 MG CAPSULE PO PRN (12:15)
[2021-12-17] MEDS ORDERED: IBUPROFEN 600 MG TABLET PO PRN (12:15)
[2021-12-17] MEDS ORDERED: LOPERAMIDE HCL 2 MG CAPSULE PO PRN (12:15)
[2021-12-17] MEDS ORDERED: MAG HYDROX/AL HYDROX/SIMETH ES 30 ML SUSPENSION UDCUP PO PRN (12:15)
[2021-12-17] MEDS ORDERED: ALBUTEROL SULFATE HFA 90 MCG/PUFF 8 GM INHALER IH PRN (12:15)
[2021-12-17] MEDS ORDERED: ACETAMINOPHEN 325 MG TABLET PO PRN (12:15)
[2021-12-17] MEDS ORDERED: MAGNESIUM HYDROXIDE SUSPENSION 30 ML UDCUP PO PRN (12:15)
[2021-12-17] MEDS ORDERED: BACITRACIN 28 GM OINTMENT TP PRN (12:15)
[2021-12-17] MEDS ORDERED: CloNIDine HCL 0.1 MG TABLET PO PRN (12:15)
[2021-12-17 16:09] VITALS: BP 118/60
[2021-12-17] MEDS: QUEtiapine FUMARATE 300 MG TABLET PO SCH (20:19)
[2021-12-18 01:07] VITALS: BP 122/70
[2021-12-18 08:17] VITALS: BP 110/81
[2021-12-18] MEDS: CHOLECALCIFEROL (VIT D3) 1,000 UNITS [25 MCG] TABLET PO SCH (08:27)
[2021-12-18] MEDS: DIVALPROEX SODIUM 500 MG DR TABLET PO SCH ×2 (08:27→17:03)
[2021-12-18 16:08] VITALS: BP 142/73
[2021-12-18] MEDS: QUEtiapine FUMARATE 300 MG TABLET PO SCH (20:23)
[2021-12-19 05:54] VITALS: BP 107/68
[2021-12-19 08:17] VITALS: BP 134/73
[2021-12-19] MEDS: CHOLECALCIFEROL (VIT D3) 1,000 UNITS [25 MCG] TABLET PO SCH (08:18)
[2021-12-19] MEDS: DIVALPROEX SODIUM 500 MG DR TABLET PO SCH ×2 (08:18→16:11)
[2021-12-19 16:30] VITALS: BP 122/66
[2021-12-19] MEDS: QUEtiapine FUMARATE 300 MG TABLET PO SCH (20:09)
[2021-12-20 05:54] VITALS: BP 120/56
[2021-12-20 09:03] VITALS: BP 117/64
[2021-12-20] MEDS: DIVALPROEX SODIUM 500 MG DR TABLET PO SCH ×2 (09:10→16:13)
[2021-12-20] MEDS: CHOLECALCIFEROL (VIT D3) 1,000 UNITS [25 MCG] TABLET PO SCH (09:10)
[2021-12-20 16:11] VITALS: BP 114/57
[2021-12-20] MEDS: QUEtiapine FUMARATE 300 MG TABLET PO SCH (20:02)
[2021-12-21 00:25] VITALS: BP 109/62
[2021-12-21 06:59] LABS: HEMATOCRIT 45.1 % (41-53); HEMOGLOBIN 15.5 g/dL (13.5-17.5); MEAN CORPUSCULAR HEMOGLOBIN 29.8 pg (26.0-34.0); MEAN CORPUSCULAR HGB CONC 34.4 G/dL (31.0-37.0); MEAN CORPUSCULAR VOLUME 87 fL (80-100); PLATELET COUNT (AUTO) 199 K/uL (150-450); RED CELL DISTRIBUTION WIDTH 14.2 % (11.5-14.5)
[2021-12-21 07:13] LABS: ANION GAP 9 mmol/L (8-16); CALCIUM, TOTAL 8.5 mg/dL (8.8-10.5); CARBON DIOXIDE 27 mmol/L (22-29); CHLORIDE 103 mmol/L (98-107); CREATININE 0.99 mg/dL (0.60-1.30); GLOMERULAR FILTR. RATE CALC > 60 mL/min (>60); GLUCOSE,RANDOM 91 mg/dL (70-110); PHOSPHORUS 4.7 mg/dL (2.5-4.9); POTASSIUM 3.8 mmol/L (3.5-5.1); SODIUM SERUM 139 mmol/L (136-145); UREA NITROGEN, BLOOD 13 mg/dL (7-18); VALPROIC ACID 66 mcg/mL (50-100)
[2021-12-21 08:12] LABS: BAND NEUTROPHILS % (MANUAL) 1 % (0-5); EOSINOPHILS % (MANUAL) 1 % (1-6); LYMPHOCYTES % (MANUAL) 49 % (22-44); MONOCYTES % (MANUAL) 1 % (2-9); SEGMENTED NEUTROPHILS % 48 % (40-70)
[2021-12-21 08:19] VITALS: BP 132/79
[2021-12-21] MEDS: DIVALPROEX SODIUM 500 MG DR TABLET PO SCH (08:30)
[2021-12-21] MEDS: CHOLECALCIFEROL (VIT D3) 1,000 UNITS [25 MCG] TABLET PO SCH (08:30)
== END 2021-12-21 13:05 | disposition home or self-care (01) | DRG 885 ==
LOC: EMS 21:05 → B2X 12-17 03:48 → B2S 12-17 10:35
PROVIDERS: ADMIT Psychiatry & Neurology Psychiatry; ATTEND Psychiatry & Neurology Psychiatry
DX: F25.9 Schizoaffective disorder, unspecified (principal); R45.851 Suicidal ideations; F32.9 Major depressive disorder, single episode, unspecified; F17.200 Nicotine dependence, unspecified, uncomplicated; F12.90 Cannabis use, unspecified, uncomplicated; F32.A Depression, unspecified; G47.00 Insomnia, unspecified; Z20.822 Contact with and (suspected) exposure to COVID-19; Z56.0 Unemployment, unspecified; Z91.52 Personal history of nonsuicidal self-harm; Z71.6 Tobacco abuse counseling
CPT/HCPCS: 80048; 80053; 80164; 83735; 84100; 85007; 85025; 85027; 99285; G0480